=== PATIENT | female | born 1950 | race Caucasian/White ===

== ENCOUNTER → 2016-09-11 | Outpatient (CLI) | payer OTHER ==
[~2016-09-11] MED LIST: ATOR10TA88 PO; LISI-787 PO; MULTTAB58 PO; OMEGCAP2 PO
--- NOTE | 2016-09-12 07:42 | MAMMOGRAPHY REPORT ---
BILATERAL DIGITAL SCREENING MAMMOGRAM WITH CAD: 09/11/2016 CLINICAL HISTORY: Routine screening. Patient has no complaints. TECHNIQUE: Bilateral CC and MLO views were obtained. Current study was also evaluated with a Compute r Aided Detection (CAD) system. COMPARISON: Comparison is made to exams dated: 09/07/2015 mammogram, 08/25/2014 mammogram, 08/11/2013 [facility], 08/07/2011 mammogram, 08/01/2010 mammogram, and 07/28/2009 [facility]og [facility]. BREAST COMPOSITION: The tissue of both breasts is almost entirely fatty. FINDINGS: The parenchymal pattern is unchanged. No developing mass, architectural distortion or clus ter of suspicious microcalcifications is seen in either breast. IMPRESSION: ACR BI-RADS CATEGORY 2: BENIGN There is no mammographic evidence of malignancy. A 1 year screening mammogram is recommended. The pa tient will receive written notification of the results. Approximately 10% of breast cancers are not detected with mammography. A negative mammographic report should not delay biopsy if a clinically suggestive mass is present. Anjali Alvarado M.D. ay/:09/11/2016 16:15:53 Center Director Lead Teacher: Rena Huddleston RT(R)(M)(BD), [facility] letter sent: Normal 1/2 BI-RADS Code: ACR BI-RADS Category 2: Benign
== END | disposition home or self-care (01) ==
LOC: C.MAMM 10:52
PROVIDERS: ATTEND Family Medicine
DX: Z12.31 Encounter for screening mammogram for malignant neoplasm of breast (principal)

== ENCOUNTER → 2016-09-19 | Outpatient (CLI) | payer OTHER | END | disposition home or self-care (01) | LOC: C.MAMM 12:57 | PROVIDERS: ATTEND Family Medicine | DX: M81.0 Age-related osteoporosis without current pathological fracture (principal); M85.89 Other specified disorders of bone density and structure, multiple sites ==

== ENCOUNTER → 2017-09-12 | Outpatient (CLI) | payer OTHER ==
[~2017-09-12] MED LIST changes: +ATOR10TA82 PO; -ATOR10TA88 PO
--- NOTE | 2017-09-13 08:10 | MAMMOGRAPHY REPORT ---
BILATERAL DIGITAL SCREENING MAMMOGRAM TOMOSYNTHESIS WITH CAD: 09/12/2017 CLINICAL HISTORY: Routine screening. Patient has no complaints. TECHNIQUE: The study was acquired using full field digital technology and interpreted from soft copy. Tomosynthesis (3D imaging) was done in the CC and MLO projections. A C-view reconstruction was then done. Current study was also evaluated with a Computer Aided Detection (CAD) system. COMPARISON: Comparison is made to exams dated: 09/11/2016 mammogram, 09/07/2015 mammogram, 08/25/2014 m ammogram, 08/11/2013 mammogram - [facility], 08/07/2011 mammogram, and 08/01/2010 mammo gram. BREAST COMPOSITION: The tissue of both breasts is almost entirely fatty. FINDINGS: No suspicious masses, calcifications, or areas of architectural distortion are noted in either breast . There has been no significant interval change compared to prior exams. IMPRESSION: ACR BI-RADS CATEGORY 1: NEGATIVE There is no mammographic evidence of malignancy. A 1 year screening mammogram is recommended.( 019) The patient will receive written notification of the results. Approximately 10% of breast cancers are not detected with mammography. A negative mammographic report should not delay biopsy if a clinically suggestive mass is present. Sandhya Navarro M.D. ah/:09/12/2017 12:29:43 Plumbing Warehouse Helper: RT Karime(Yumiko)(M)(BD), [facility] letter sent: Normal 1/2 BI-RADS Code: ACR BI-RADS Category 1: Negative
== END | disposition home or self-care (01) ==
LOC: C.MAMM 11:04
PROVIDERS: ATTEND Family Medicine
DX: Z12.31 Encounter for screening mammogram for malignant neoplasm of breast (principal)

== ENCOUNTER 2024-03-28 08:15 | Inpatient (IN) ==
--- NOTE | 2024-03-28 08:34 | Emergency Department Note ---
Impression & Plan Closed right hip fracture, Ground-level fall ED Provider Note Name: JOCY MENDOZA Age: 74 Sex: Female Arrives Via: Ambulance Informant: Patient ED Provider: Yury Ragsdale MD Chief Complaint: Right thigh pain Impression: As per impressions above Medical Decision Makin-year-old female arrives for evaluation of right upper thigh pain following a ground-level fall. No head or neck injury no Tran did CT imaging of the head and neck at this time. Patient had a primary and secondary survey done by me as per typical trauma protocol. Beyond the right leg injury no clear other injuries found. X-ray of the right leg does reveal an intratrochanteric fracture. Laboratory workup otherwise is unremarkable. Patient stable and hospitalist and orthopedic surgeon made aware. Triage/Nursing Notes reviewed by Me Differential:Fracture, dislocation, neurovascular injury, rhabdo, nonmechanical fall because amongst many others. Vital Signs: reviewed and remarkable for hypertension on arrival Interventions: Dilaudid 0.5 mg IV x 2 Labs:ED labs Reviewed by me and remarkable for no significant abnormalities Imagin view chest x-ray as per my interpretation no infiltrate nor effusion appreciated. 1 view pelvis x-ray as per my interpretation right intertrochanteric fracture somewhat noted. X-ray of the right femur 4 view as per my interpretation there is a somewhat displaced mildly comminuted right intertrochanteric fracture. EKG:As per my interpretation. Indication preop. Sinus bradycardia 51 bpm QTc of 432. There is no ectopy nor ischemia. Compared to EKG of August 02, 2023 there is no significant change. Cardiac/Tele Monitoring: Cardiac Monitoring: An Order was placed for continuous cardiac monitoring. The monitor shows a rate of 50 with a sinus janes rhythm. Consults:Discussed with Dr. Jeffery of the [facility] Hospitalist Service. Discussed with Dr. Agee of orthopedics Plan: Disposition:Hospitalization. Condition: Good History of Present Illness: 74-year-old female arrives for evaluation of right leg pain. Patient was taking out the trash this morning slipped on the wet ground. She landed on her right hip. She has been having right hip and right upper thigh pain since then. Patient notes initially her right leg felt a bit numb after the fall but it has since returned. She laid on the ground for about 10 minutes before a passerby saw her and called 911. Patient did not strike her head. She denies any headache, neck pain. She is not having any other pain or injuries. She is not having any difficulty breathing, shortness of breath, chest pain, nausea, vomiting abdominal pain, back pain. She has no history of hip injury. She does not follow with any orthopedic surgeons. She has a history of hypertension and did have a TAVR 3 years ago. She does not take any blood thinners other than a baby aspirin Past Medical History: Dyslipidemia hypertension Home Medications:See Below Allergies:nkda Vitals:Blood Pressure: 177/84, Pulse 52, RR 14, T 36.5C, O2 97% on RA Physical Exam: GENERAL: Patient is uncomfortable appearing and in moderate distress. HEAD: AT/NC RESPIRATORY: No dyspnea. Clear to auscultation and equal bilaterally. CARDIOVASCULAR: Regular rate and rhythm.No murmur appreciated. GASTROINTESTINAL: Abdomen soft, non-tender, no peritonitis. EXTREMITIES: Shortened externally rotated right leg. She has significant tenderness palpation of the right upper medial thigh. Distal pulses sensation are intact. Good warmth bilateral lower legs. Upper extremities intact no tenderness to palpation or difficulty with range of motion. NEUROLOGIC: Alert and oriented. No focal neurologic deficits appreciated SKIN: No rash, no jaundice, no diaphoresis. PSYCH: Appropriate GCS: 15 ED Course: Times/Reassessments: Pain somewhat under control with IV Dilaudid Though did require second dosing. Yury Ragsdale MD Past Med/Surg History Problem List (Updated 03/28/24 @ 16:26 by Yury Ragsdale MD) Ground-level fall (Acute) History of CHF (congestive heart failure) S/P TAVR (transcatheter aortic valve replacement) Closed right hip fracture (Acute) Dizziness (Acute) Abnormal EKG (Acute) Hyperlipidemia (Chronic) Hypertension (Chronic) Medical History (Updated 03/28/24 @ 16:26 by Yury Ragsdale MD) Encounter for pre-operative examination History of CHF (congestive heart failure) Hyperlipidemia Hypertension Surgical History (Updated 03/28/24 @ 11:54 by Ce Wynne RN) Hx of tonsillectomy S/P TAVR (transcatheter aortic valve replacement) Social History Smoking Status: Former smoker Second Hand Exposure: No; Do You Dip or Chew Tobacco: No; Hx Alcohol Use: No Hx Substance Use: No Preferred Language: Portuguese [employer] Work[employer] D[employer] Required: No Beliefs That Will Affect Care: None Current Living Situation: Alone current occupation: Retired Feels Safe at Home: Yes Allergies Allergies Allergy/AdvReac Type Severity Reaction Status Date / Time No Known Allergies Allergy Verified 07/11/21 07:28 Home Meds Home Medications Medication Instructions Recorded Confirmed calcium 600 mg (as 1 tab PO [facility] 05/22/20 03/28/24 carbonate)-vitamin D3 5 mcg (200 unit) tablet multivitamin 1 tab PO QAM 05/22/20 03/28/24 omega-3 fatty acids 1,250 mg PO .Q OTHER DAY 05/22/20 03/28/24 amlodipine 10 mg tablet 10 mg PO [facility] 07/11/21 03/28/24 ferrous sulfate 143 mg PO .Q OTHER DAY 07/11/21 03/28/24 hydralazine 10 mg tablet 20 mg PO BID 07/11/21 03/28/24 metoprolol succinate 25 mg 25 mg PO PM 07/11/21 03/28/24 tablet,extended release 24 hr valsartan 320 mg tablet 320 mg PO [facility] 07/11/21 03/28/24 CoQ-10 1 cap PO [facility] 03/28/24 03/28/24 aspirin 81 mg tablet,delayed 81 mg PO [facility] 03/28/24 03/28/24 release furosemide 20 mg tablet 20 mg PO .3X WEEKLY 03/28/24 03/28/24 pravastatin 20 mg tablet 20 mg PO [facility] 03/28/24 03/28/24 Results & Data (ED) Vital Signs Vital Signs - 24 hr 03/28/24 08:21 03/28/24 08:22 03/28/24 08:22 Temperature 36.5 C Temperature Source Oral Pulse Rate 54 L Pulse Rate from SpO2 Sensor Respiratory Rate 14 Respiratory Effort / Characteristics Non-Labored Spontaneous Non-Labored Spontaneous Respiratory Depth Normal Normal Blood Pressure 177/84 H 177/84 H Blood Pressure Mean 136 115 Pulse Oximetry 97 Oxygen Delivery Method Room Air Sepsis Recent Fever Within 48 Hours No Sepsis New/Unexplained Change in Mental Status N/A Sepsis Action Taken by Nursing No Action Required 03/28/24 08:25 03/28/24 08:30 03/28/24 08:42 Temperature Temperature Source Pulse Rate 52 L 59 L 56 L Pulse Rate from SpO2 Sensor 60 59 L Respiratory Rate 15 Respiratory Effort / Characteristics Respiratory Depth Blood Pressure Blood Pressure Mean Pulse Oximetry 98 93 Oxygen Delivery Method Sepsis Recent Fever Within 48 Hours Sepsis New/Unexplained Change in Mental Status Sepsis Action Taken by Nursing 03/28/24 08:51 03/28/24 09:00 03/28/24 09:18 Temperature Temperature Source Pulse Rate 44 L 59 L 61 Pulse Rate from SpO2 Sensor 50 L 60 61 Respiratory Rate 14 18 12 Respiratory Effort / Characteristics Respiratory Depth Blood Pressure Blood Pressure Mean Pulse Oximetry 95 96 96 Oxygen Delivery Method Sepsis Recent Fever Within 48 Hours Sepsis New/Unexplained Change in Mental Status Sepsis Action Taken by Nursing 03/28/24 09:24 03/28/24 09:36 Temperature Temperature Source Pulse Rate 63 65 Pulse Rate from SpO2 Sensor 62 65 Respiratory Rate 19 13 Respiratory Effort / Characteristics Respiratory Depth Blood Pressure Blood Pressure Mean Pulse Oximetry 91 99 Oxygen Delivery Method Sepsis Recent Fever Within 48 Hours Sepsis New/Unexplained Change in Mental Status Sepsis Action Taken by Nursing Laboratory Data 03/28/24 08:27 03/28/24 08:27 Lab Results 03/28/24 03/28/24 Range/Units 08:27 09:05 WBC 9.60 (4.8-10.8) K/ul RBC 5.91 H (4.20-5.40) M/uL Hgb 10.9 L (12.0-16.0) g/dl Hct 34.5 L (37.0-47.0) % MCV 58.4 L (80.0-100.0) fL MCH 18.4 L (25.0-34.0) pg MCHC 31.6 L (32.0-36.0) g/dL RDW Std Deviation 31.6 L (36.4-46.3) fL RDW Coeff of Tina 16.2 H (11.5-14.5) % Plt Count 232 (130-400) K/uL Immature Gran % (Auto) 0.4 % Neut % (Auto) 67.0 % Lymph % (Auto) 19.2 % Noble % (Auto) 11.3 % Eos % (Auto) 1.9 % Baso % (Auto) 0.2 % Neut # (Auto) 6.44 (1.40-6.50) K/uL Lymph # (Auto) 1.84 (1.20-3.40) K/uL Noble # (Auto) 1.08 H (0.11-0.59) K/uL Eos # (Auto) 0.18 (0.00-0.50) K/uL Baso # (Auto) 0.02 (0.00-0.20) K/uL Immature Gran # (Auto) 0.04 (0.01-0.20) K/uL Polychromasia 1+ Poikilocytosis Present Microcytosis Present Target Cells 1+ Tear Drop Cells 1+ Ovalocytes 1+ PT 10.6 (9.0-12.0) Seconds INR 1.0 (0.9-1.1) APTT 25 (21-31) Seconds PTT Ratio 0.9 Sodium 142 (136-145) mmol/L Potassium 4.1 (3.5-5.1) mmol/L Chloride 109 H (98-107) mmol/L Carbon Dioxide 27 (21-32) mmol/L Anion Gap 6 (3-11) BUN 28 H (6-23) mg/dl Creatinine 0.61 (0.6-1.2) mg/dl Est Cr Clr Drug Dosing 74.5 ml/min eGFR 93.76 BUN/Creatinine Ratio 45.9 H (10-20) Glucose 119 H (70-99(Fasting)) mg/dl Calcium 8.9 (8.6-10.3) mg/dl Magnesium 1.9 (1.7-2.4) mg/dl Urine Color Yellow Urine Appearance Clear (Clear) Urine pH 5.5 (4.5-7.5) Ur Specific [place] 1.020 (1.000-1.030) Urine Protein Negative (Negative) Urine Glucose (UA) Negative (Negative) Urine Ketones Negative (Negative) Urine Blood Negative (Negative) Urine Nitrite Negative (Negative) Urine Bilirubin Negative (Negative) Urine Urobilinogen Negative (Negative) Ur Leukocyte Esterase Negative (Negative) Administered Medications Hydromorphone HCl (Hydromorphone Inj 2 Mg/Ml Syr/Vial) 0.5 mg IV Q5M PRN PRN Reason: PACU Use Only-Pain Stop: 03/28/24 23:11 Last Admin: 03/28/24 15:24 Dose: 0.5 mg Documented By: Admin: 03/28/24 15:19 Dose: 0.5 mg Documented By: Admin: 03/28/24 15:14 Dose: 0.5 mg Documented By: ADAM Potassium Chloride/Sodium Chloride (Normal Saline W/20 Meq Kcl) 20 meq in 1,000 mls @ 70 mls/hr IV .[id number] NETTIE Stop: 03/29/24 11:31 Last Admin: 03/28/24 16:09 Dose: 70 mls/hr Documented By: SONYA Discontinued Medications Amlodipine Besylate (Amlodipine Besylate 5 Mg Tab) 10 mg PO NOW ONE Stop: 03/28/24 09:46 Last Admin: 03/28/24 10:05 Dose: 10 mg Documented By: AMINA Bupivacaine HCl/Epinephrine Bitart (Bupivacaine/Epinephrine 0.25% 1:200,000 30 Ml Vial) Confirm Administered Dose 30 ml .ROUTE .STK-MED ONE Stop: 03/28/24 13:05 Last Admin: 03/28/24 14:01 Dose: 30 ml Documented By: [id number] Cefazolin Sodium (Cefazolin 2,000 Mg/15 Ml Iv Push) Confirm Administered Dose 2,000 mg IV .STK-MED ONE Stop: 03/28/24 12:57 Last Admin: 03/28/24 12:59 Dose: Not Given Documented By: MG Fentanyl Citrate (Fentanyl Citrate Pf 100 Mcg/2 Ml Vial) 25 mcg IV Q5M PRN PRN Reason: PACU Use Only-Pain Stop: 03/28/24 19:33 Last Admin: 03/28/24 14:44 Dose: 25 mcg Documented By: Admin: 03/28/24 14:39 Dose: 25 mcg Documented By: Admin: 03/28/24 14:30 Dose: 25 mcg Documented By: Admin: 03/28/24 14:25 Dose: 25 mcg Documented By: ADAM Hydromorphone HCl (Hydromorphone Inj 0.5 Mg/0.5 Ml Syr) 0.5 mg IV NOW STA Stop: 03/28/24 08:29 Last Admin: 03/28/24 08:35 Dose: 0.5 mg Documented By: AMINA Hydromorphone HCl (Hydromorphone Inj 0.5 Mg/0.5 Ml Syr) 0.5 mg IV NOW STA Stop: 03/28/24 08:56 Last Admin: 03/28/24 09:02 Dose: 0.5 mg Documented By: AMINA Hydromorphone HCl (Hydromorphone Inj 0.5 Mg/0.5 Ml Syr) 0.5 mg IV NOW STA Stop: 03/28/24 10:35 Last Admin: 03/28/24 10:36 Dose: 0.5 mg Documented By: AMINA Hydromorphone HCl (Hydromorphone Inj 1 Mg/Ml Syringe) 0.25 mg IV Q5M PRN PRN Reason: PACU Use Only-Pain Stop: 03/28/24 19:33 Last Admin: 03/28/24 15:04 Dose: 0.25 mg Documented By: Admin: 03/28/24 14:59 Dose: 0.25 mg Documented By: Admin: 03/28/24 14:54 Dose: 0.25 mg Documented By: Admin: 03/28/24 14:49 Dose: 0.25 mg Documented By: ADAM Sodium Chloride (Nss) 500 mls @ 999 mls/hr IV .Q31M ONE Stop: 03/28/24 09:43 Last Infusion: 03/28/24 10:32 Dose: Infused Documented By: Admin: 03/28/24 09:14 Dose: 999 mls/hr Documented By: AMINA Famotidine (Pepcid 20mg Iv Push) 20 mg in 5 mls @ 2.5 mls/min IV NOW STA Stop: 03/28/24 09:59 Last Admin: 03/28/24 10:05 Dose: 2.5 mls/min Documented By: AMINA Lactated Ringer's (Lr) 1,000 mls @ 15 mls/hr IV .Q24H NETTIE Stop: 03/29/24 11:59 Last Infusion: 03/28/24 12:58 Dose: Infused Documented By: Admin: 03/28/24 12:07 Dose: 15 mls/hr Documented By: MG Tranexamic Acid (Tranexamic Acid / 0.7% Nacl) 1,000 mg in 100 mls @ 600 mls/hr IV PREOP ONE Stop: 03/28/24 13:01 Last Admin: 03/28/24 12:58 Dose: 600 mls/hr Documented By: MG Tranexamic Acid (Tranexamic Acid / 0.7% Nacl) 1,000 mg in 100 mls @ 600 mls/hr IV ONE ONE Stop: 03/28/24 13:01 Last Admin: 03/28/24 13:53 Dose: 600 mls/hr Documented By: [id number] Cefazolin Sodium (Ancef 2000mg) 2,000 mg in 15 mls @ 3.75 mls/min IV PREOP ONE; Protocol Stop: 03/28/24 12:56 Last Admin: 03/28/24 13:00 Dose: 3.75 mls/min Documented By: [id number] Ondansetron HCl (Ondansetron Inj 2 Mg/Ml 2 Ml Vial) 4 mg IV NOW STA Stop: 03/28/24 08:29 Last Admin: 03/28/24 08:36 Dose: 4 mg Documented By: AMNIA Ondansetron HCl (Ondansetron Inj 2 Mg/Ml 2 Ml Vial) 4 mg IV ONCE PRN PRN Reason: PACU Use Only-Nausea/Vomiting Stop: 03/28/24 19:33 Last Admin: 03/28/24 15:49 Dose: 4 mg Documented By: ADAM Tranexamic Acid (Tranexamic Acid / 0.7% Nacl 1000mg/100ml Bag) Confirm Administered Dose 2,000 mg IV .STK-MED ONE Stop: 03/28/24 12:57 Last Admin: 03/28/24 13:00 Dose: Not Given Documented By: Imaging Data Radiologist's Impression: Femur X-Ray 03/28/24 08:28 XR femur RT 2V routine CLINICAL HISTORY: upper thigh pain s/p trauma COMPARISON: None FINDINGS: 2 views of the right femur demonstrate a comminuted intertrochanteric fracture of the proximal right femur and no distal femoral abnormalities. IMPRESSION: As above ACT 112: Negative or not required by law. Electronically signed by: Daksha Abernathy M.D. 03/28/2024 9:29 AM Pelvis X-Ray 03/28/24 08:28 XR pelvis 1-2V routine CLINICAL HISTORY: right hip pain fall COMPARISON: None FINDINGS: Comminuted intertrochanteric fracture of the proximal right femur with the typical deformity. No pelvic fractures identified. Left hip normally aligned. IMPRESSION: Intertrochanteric fracture proximal right femur ACT 112: Negative or not required by law. Electronically signed by: Daksha Abernathy M.D. 03/28/2024 9:28 AM Chest X-Ray 03/28/24 08:29 XR chest 1V portable CLINICAL HISTORY: fall, pre-op COMPARISON STUDY: 08/02/2023 FINDINGS: Stable cardiomegaly without pulmonary vascular congestion. No effusion or consolidation. No pneumothorax. No grossly displaced rib fracture seen. IMPRESSION: No acute findings. ACT 112: Negative or not required by law. Electronically signed by: Onofre Molina M.D. 03/28/2024 9:43 AM Discharge Plan Visit Data Chief Complaint: Fall ED Provider: Yury Ragsdale Discharge Problem: Closed right hip fracture, Ground-level fall Patient Disposition: Admitted As Inpatient Discharge Instructions Interventions: ED Discharge Assessment Last Done: 03/28/24 10:59 Discharge Problem: Closed right hip fracture Qualifiers: Encounter type: initial encounter Qualified Code(s): S72.001A - Fracture of unspecified part of neck of right femur, initial encounter for closed fracture
[2024-03-28] MEDS: HYDROmorphone INJ 0.5 MG/0.5 ML SYR IV STA ×3 (08:35→10:36)
[2024-03-28] MEDS: ONDANSETRON INJ 2 MG/ML 2 ML VIAL IV STA (08:36)
[2024-03-28 08:56] LABS: Hematocrit (blood only) 34.5 % (37.0-47.0); Hemoglobin 10.9 g/dl (12.0-16.0); Mean Corpuscular Hemoglobin 18.4 pg (25.0-34.0); Mean Corpuscular Hgb Conc 31.6 g/dL (32.0-36.0); Mean Corpuscular Volume 58.4 fL (80.0-100.0); Platelet Count 232 K/uL (130-400); RDW Coefficient of Variation 16.2 % (11.5-14.5); RDW Standard Deviation 31.6 fL (36.4-46.3); Red Blood Count 5.91 M/uL (4.20-5.40)
[2024-03-28 08:58] LABS: BUN Creatinine Ratio 45.9 (10-20); Calcium 8.9 mg/dl (8.6-10.3); Creatinine Clr Calc Pharmacy 74.5 ml/min; Magnesium 1.9 mg/dl (1.7-2.4); Potassium 4.1 mmol/L (3.5-5.1)
[2024-03-28 09:12] LABS: Partial Thromboplastin Ratio 0.9; Partial Thromboplastin Time 25 Seconds (21-31); Prothrombin Time 10.6 Seconds (9.0-12.0)
[2024-03-28] MEDS: SODIUM CHLORIDE 0.9% 500 ML IV ONE (09:14)
--- OUTSIDE RECORDS SUMMARY | 2024-03-28 09:14 | External Medical Summary | Continuity of Care Document ---
Author Name Unknown Organization [facility] [address] [facility] Address [address] [place], [place] [id number] Care Team Providers Care Outpatient Physical Therapist Name Role Phone Dary Warren Primary Care Physician [phone] Encounter [facility] [phone] Date(s): 02/22/24 - 02/22/24 [facility] [address], [address] [place] [address] [phone] Discharge Disposition: Home or Self Care Attending Physician: DO Cope Jason D Referring Physician: DO Cope Jason D Allergies, Adverse Reactions, Alerts No Known Allergies Immunizations Given and Recorded Vaccine Date Status Refusal Reason influenza virus vaccine, inactivated 01/29/24 Los rded influenza virus vaccine, inactivated 1 01/05/23 Gi ade influenza virus vaccine, inactivated 2 01/02/22 Gi ade influenza virus vaccine, inactivated 3 12/27/20 Gi ade influenza virus vaccine, inactivated 12/22/19 Give n influenza virus vaccine, inactivated 12/17/18 Give n influenza virus vaccine, inactivated 12/10/17 Give n influenza virus vaccine, inactivated 12/05/16 Give n influenza virus vaccine, inactivated 12/07/15 Give n influenza virus vaccine, inactivated 11/16/14 Give n influenza virus vaccine, inactivated 12/09/13 Give n influenza virus vaccine, inactivated 12/02/12 Give n influenza virus vaccine, inactivated 11/06/11 Give n SARS-CoV-2 (COVID-19) mRNA-vacc - [id number] 12/12/23 Recorded SARS-CoV-2 (COVID-19) mRNA-vacc - [id number] 12/11/23 Recorded RSV vaccine, preF A-preF B, recombinant 01/15/23 R ecorded SARS COVID Vaccine Unspecified 12/03/22 Recorded SARS-CoV-2 mRNA (Pfizer 12+) bivalent 5 12/02/21 R ecorded SARS-CoV-2 (COVID-19) mRNA-1273 vaccine 6 07/04/21 Recorded SARS-CoV-2 mRNA (tozinameran 5y-11y) 07/03/21 Los rded SARS-CoV-2 (COVID-19) mRNA BNT-162b2 vax 7 12/10/20 Recorded SARS-CoV-2 (COVID-19) mRNA BNT-162b2 vax 8 04/21/20 Recorded SARS-CoV-2 (COVID-19) mRNA BNT-162b2 vax 9 03/31/20 Recorded zoster vaccine, inactivated 10 04/27/19 Recorded zoster vaccine, inactivated 11 03/11/19 Recorded zoster vaccine, inactivated 12 01/06/19 Recorded zoster vaccine, inactivated 13 12/27/18 Recorded pneumococcal 23-valent vaccine 06/04/17 Given tetanus/diphtheria/pertuss, acel (Tdap) 07/18/16 G iven pneumococcal 13-valent vaccine 06/07/16 Given zoster vaccine live 12/07/11 Recorded tetanus toxoids-diphtheria, Td (Adult) 02/27/05 Re corded Not Given Vaccine Date Status Refusal Reason influenza virus vaccine, inactivated 4 01/11/23 No t Given Patient Refuses 1Result Comment: Patient declined high dose flu. 2Result Comment: Jessica Singh MA 3Result Comment: At the patients request, she received the low dose influenza shot verified by Zaid Jackson LPN 4Result Comment: 2022-01-02: Historical information-source unspecified 5Result Comment: 2022-01-02: Historical information-source unspecified 6Result Comment: 2020-12-27: Historical information-source unspecified 7Result Comment: 2020-12-27: Historical information-source unspecified 8Result Comment: 2020-12-27: Historical information-source unspecified 9Result Comment: Denzel 10Result Comment: 2020-12-27: Historical information-source unspecified 11Result Comment: 2020-12-27: Historical information-source unspecified 12Result Comment: Denzel 13Result Comment: Patient requested low dose flu vaccine due to side effects of high dose flu vaccine. Medications amoxicillin 500 mg oral capsule Start: 01/24/22 11:05:00 AM EST, 4 cap, PO, As indicated, Disp# 12 cap, Refills: 3, one hour beforedental and other procedures as directed, Pharmacy: [facility] Start Date: 01/24/22 Status: Ordered aspirin 81 mg oral tablet, chewable Start: 10/10/21 10:14:00 AM EDT, 1 tab, PO, Daily, Disp# 30 tab, Refills: 3, Pharmacy: [facility] Start Date: 10/10/21 Stop Date: 02/07/22 Status: Ordered Caltrate 600+D Soft Chews Start: 06/24/10 1:31:00 PM EDT, Daily, tab Start Date: 06/24/10 Status: Ordered Co-Q10 100 mg oral capsule Start: 02/08/24 3:50:00 PM EST, 2 cap, PO, Daily Start Date: 02/08/24 Status: Ordered Fish Oil oral capsule Start: 06/14/11 1:37:00 PM EDT, See Instructions, No Dosage Noted One Daily Start Date: 06/14/11 Status: Ordered furosemide 20 mg oral tablet Start: 10/31/23 2:26:00 PM EDT, 1 tab, PO, qMonWedFri, Disp# 30 tab, Refills: 11, 1 tab MWF, Pharmacy: [facility] Start Date: 10/31/23 Status: Ordered hydrALAZINE 10 mg oral tablet Start: 07/02/23 4:09:00 PM EDT, 2 tab, PO, bid, Disp# 360 tab, Refills: 3, [facility] Start Date: 07/02/23 Status: Ordered metoprolol succinate 25 mg oral tablet, extended release Start: 08/27/23 4:31:00 PM EDT, 1 tab, PO, qhs, Disp# 90 tab, Refills: 3, Pharmacy: [facility] Start Date: 08/27/23 Status: Ordered multivitamin Start: 12/05/16 11:11:00 AM EDT, 1 tab, PO, Daily Start Date: 12/05/16 Status: Ordered Norvasc 10 mg oral tablet Start: 08/07/23 9:10:00 AM EDT, 1 tab, PO, Daily, Disp# 90 tab, Refills: 3, [facility]: [facility] Start Date: 08/07/23 Status: Ordered pravastatin 20 mg oral tablet Start: 03/26/23 4:13:00 PM EST, 1 tab, PO, qhs, Disp# 90 tab, Refills: 3, Pharmacy: [id number] Start Date: 03/26/23 Status: Ordered Slow Fe (as elemental iron) 45 mg oral tablet, extended release Start: 12/05/16 11:12:00 AM EDT, See Instructions, 1 tab PO Daily every other day Start Date: 12/05/16 Status: Ordered valsartan 320 mg oral tablet Start: 06/14/23 8:07:00 AM EDT, 1 tab, PO, Daily, Disp# 90 tab, Refills: 3, Pharmacy: [id number] Start Date: 06/14/23 Status: Ordered Vitamin C Start: 01/03/24 11:08:00 AM EST Start Date: 01/03/24 Status: Ordered zinc (as acetate) 25 mg oral capsule Start: 01/03/24 11:08:00 AM EST Start Date: 01/03/24 Status: Ordered Problem List Condition Confirmation Course Effective Dates Status H ealth Status Informant Anemia Confirmed Active Aortic insufficiency Confirmed Active Aortic valve stenosis Confirmed Active Diastolic CHF Confirmed Active Diverticulosis Confirmed Active S/P TAVR (transcatheter aortic valve replacement) Confirmed Active Hyperlipidemia Confirmed Active HYPERTENSION Confirmed Active OSTEOPOROSIS Confirmed Active Procedures Procedure Date Related Diagnosis Body Site Status Mammogram 1 09/26/22 Completed Screening mammogram of bilat eral breasts 2 09/21/20 Completed Colonoscopy 3, 4 01/14/20 Complete d Mammogram - screening 5 09/19/19 C ompleted Bone density scan 6, 7 07/24/19 Co mpleted Plain x-ray - R foot 8 12/25/18 Co mpleted Mammogram - screening 9 09/12/17 C ompleted Mammogram - screening 10 09/11/16 Completed Mammogram - screening 11 09/07/15 Completed Ultrasound right upper extremity 12 08/17/15 Completed Wrist X-ray 13 08/17/15 Completed Mammogram 14 08/26/14 Completed Echocardiogram 08/17/14 Completed Echocardiogram 07/05/14 Completed Chest x-ray 15 07/04/[address] brain w/o contrast 16 07/04/14 Completed Mammogram 17 08/11/13 Completed Colonoscopy 18 12/2009 Completed sabaceous cyst from left side neck 1972 Completed wisdom teeth extraction 1968 C ompleted mammogram-08/08 Completed Tonsillectomy and adenoidectomy Completed 1Impression: There is no mammographic evidence of malignancy. A 1 year screening mammogram is recommended. 2Impression: ACR BI-RADS CATEGORY 1: NEGATIVE. There is no mammographic evidence of malignancy. A 1 year screening mammogram is recommended. (09/22/2021). The patient will receive written notification of the results. 3impression: -diverticulosis in the sigmoid colon -no specimens collected 4Repeat in 5 years. 5IMPRESSION: Negative for malignancy. 1 year screening is recommended 6(07/24/19) Spine Tscore -2.1 Femur mean Tscore -2.6 7AP spine t-score; -2.5 Dual femur total mean t-score: -2.1 Z score -0.9 BDM within normal linits relative to their age. 81. no fx within the right foot. 2. plantar heel spur 9IMPRESSION: No mammographic evidence of malignancy. 10There is no mammographic evidence of malignancy. A 1 year screening mammogram is recommended. 11there is no mammographic evidence of malignancy. A 1 year screening mammogram is recommended. The patient will receive written notification of the results. 12There is no sonographic evidence of deep venous thrombosis identified in the right upper extremity. 13impression there is a soft tissue swelling with no radiographic evidence of fracture in the right wrist. osteopenia and mild arthritic changes as above. there is questionable mild widening of the scapholunate articulation. this may be related to positioning. but could also be seen in the setting ofligamentous injury. clinical correlation will be required. 14Normal 15hx: dizziness Impression: negative study. 16Impression: negative study 17Normal 18Diverticulosis, hyperplastic polyp, needs repeat 2019 Social History Social History Type Response Smoking Status Never smoked cigaret kati Sex Female Sex Representation Female (finding) Patient Care team information Care Team Personnel Name: EAGLE Alva Tara Position: Nurse Pract - Family Med Member Role: Lifetime Relationship Address: [address] [place] [id number] [place] Name: MD Kelvin, Dary Cazares Position: Physician Member Role: Primary Care Provider Address: 6 [facility] [address] [place] [address] [place] Name: TEDDY Balderrama, Buffy [place] Position: Physician Asst [place] - CT Surgery Member Role: Lifetime Relationship Address: [address] [place] [id number] Care Team Related Persons Name: PAT BLANK
--- OUTSIDE RECORDS SUMMARY | 2024-03-28 09:14 | External Medical Summary | Summary of Care ---
Author Name Unknown Organization [facility] Address [address] [place] [address] Phone [phone] Care Team Providers Care Merchandise Carrier Name Role Phone Dary Warren MD Primary Care Provi jennifer Reason for Referral * Evaluate & Treat - Unlimited Visits (Within 10 days (routine)) - Authorized Specialty Diagnoses / Procedures Referred By Contmaritza gomez Referred To Contact Dietitian Diagnoses Dietary counseling and surveillance Diastolic heart failure (HCC) Dary Warren MD 6 [facility] [address] [place] [id number] Phone: tel: fax: Referral ID Status Reason Start Date Expiration Date Visits Requested Visits Authorized [id number] Authorized Specialty Services Required 03/10/[phone] Question Answer Referral Priority Within 10 days (routine) Where should this appointment be scheduled? Deborah Comments This referral/annual renewal order is for Medical Nutrition Therapy (MNT) or Diabetes Self-Management Training (DSMT). MNT is provided by a Registered Dietitian Sausage Meat Trimmer. MNT is an evidence-based medical approach to treating certain chronic conditions through the use of an individually-tailored nutrition, lifestyle changes and behavior modification plan. Diabetes Self-Management Training (DSMT) is provided by a recognized [place] [employer] (ADA) chemical educator: Nurse (RN), Registered Dietitian Sausage Meat Trimmer (RDN), and/or Diabetes Medical Nutrition Therapy (MNT) Management (dietitian only). Diabetes educators are responsible for assessing the participant's diabetes education needs, and providing diabetes self-management training in accordance with the standards set by the ADA for DSMT. Any adjustment in diabetes therapy will be made within the guidelines of standards of practice and [facility] approved policies and procedures. I understand that the chemical educator will keep me informed. Areas of Education: Pathophysiology Nutrition Physical Activity Medications Monitoring Acute Complications Chronic Complications Psychosocial Management Promote Health/Behavior Change Participant will be offered 1:1 education training if there is a lack of classes available within 2 months. Providers can also order 1:1 training if indicated for participant for the following reasons: 1:1 Training for Insulin Initiation Participant Inappropriate for Class Setting By my electronic signature, I understand that my patient will be offered the comprehensive ADA content area above unless deemed not appropriate of I specify otherwise here: Encounter Details Date Type Department Care Team (Late st Contact Info) Description 03/10/2024 Orders Only Access [place], [address] *DO NOT REMOVE THIS DEPARTMENT* [place] [phone] Request, External Referral Dietary counseling and surveillance*; Diastolic heart failure (HCC) Allergies No known active allergiesdocumented as of this encounter (statuses as of 03/10/2024) Medications hydrALAZINE HCl 10 MG Oral Tablet (Apresoline) take 2 tablets by mouth twice daily 360 Tablet 3 01/15/2024 6:43 PM EST 07/02/2023 Active amLODIPine Besylate 10 MG Oral Tablet (Norvasc) Take 1 tablet by mouth daily 90 Tablet 3 02/06/2024 2:26 PM EST 08/07/2023 Active documented as of this encounter (statuses as of 03/10/2024) Social History Tobacco Use Types Packs/Day Years Used Date Smoking Tobacco: Never Assessed Utilities Answer Date Recorded Do you have trouble paying y our heating, water, or electric bill? (Adult - for ages 18 years and over) Not on file 08/14/2023 Is your family able to pay t he heat, water, or electric bill? (Household - for ages 0-17 years) Not on file 08/14/2023 Does your family have access to good internet? (Household - for ages 0-17 years) Not on file 08/14/2023 Social Connections Answer Date Recorded How often do you feel lonely or isolated from those around you? (Adult - for ages 18 years and over) Not on file 08/14/2023 Comments Unknown Sex and Gender Information Value Date Recorded Sex Assigned at Not on file Legal Sex Female 4:16 PM EST Gender Identity Not on file Sexual Orientation Not on file documented as of this encounter Plan of Treatment Upcoming Encounters Date Type Department Care Team (Late st Contact Info) Description 09/10/2024 10:30 AM EDT Nutrition Services [facility] [address] [place] [id number] Ester Kaur RDN [address] [place] [phone] Scheduled Referrals Name Type Priority Associated Diagnoses Orde r Schedule CLINICAL NUTRITION AND DIABETES EDUCATION ANNUAL RENEWAL Referral Within 10 days (routine) Dietary counseling and surveillance Diastolic heart failure (HCC) Ordered: 03/10/2024 Health Maintenance Due Date Last Done Comments Lipid Panel 1950 Depression Screening 1962 Hepatitis C Screening 1968 Cologuard 1995 Colonoscopy 1995 Colorectal Cancer Screening 1995 Fecal Occult Blood Test 1995 Sigmoidoscopy 1995 Mammogram 10/02/2024 10/03/2023, 08/02/2022, 09/23/2021 DTap/Tdap Vaccines (2 - Td or Tdap) 07/18/2026 07/18/2016 DXA Scan 03/29/2029 03/29/2022 Pneumococcal Vaccine: 50+ Years Completed 06/04/2017, 06/07/2016 Zoster Vaccines Completed 03/11/2019, 12/27, 12/07/2011 COVID-19 Vaccine Completed 12/12/2023, , 12/03/2022, Additional history exists Influenza Vaccine (FLU shot) Completed 04/2023, 01/05/2023, 01/02/2022, Additional history exists HPV (Gardasil) Vaccine Aged Out No lo nger eligible based on patient's age to complete this topic Hepatitis B Vaccine Aged Out No longe r eligible based on patient's age to complete this topic MENINGOCOCCAL (MENACTRA/MENVEO) Aged Out No longer eligible based on patient's age to complete this topic documented as of this encounter Medical Devices Not on filedocumented as of this encounter Visit Diagnoses Diagnosis Dietary counseling and surveillance- Primary Dietary surveillance and counseling Diastolic heart failure (HCC) Unspecified diastolic heart failure documented in this encounter Care Teams Merchandise Carrier Relationship Specialty Start Date End Date Dary Warren MD 6 [facility] [address], [place] [address] PCP - General Family Medicine 05/10/22 documented as of this encounter
--- OUTSIDE RECORDS SUMMARY | 2024-03-28 09:14 | External Medical Summary | Summary of Care ---
Author Name Unknown Organization [facility] Address [address] [facility] [address] Phone [phone] Care Team Providers Care Painter Helper Spray Name Role Phone Dary Warren MD Primary Care Provi jennifer Encounter Details Date Type Department Care Team (Late st Contact Info) Description 03/11/2024 Orders Only Nutrition, [facility] [address] [place] [phone] Ester Kaur, RDVictor M [address] [place] [phone] Allergies No known active allergiesdocumented as of this encounter (statuses as of 03/11/2024) Medications hydrALAZINE HCl 10 MG Oral Tablet (Apresoline) take 2 tablets by mouth twice daily 360 Tablet 3 01/15/2024 6:43 PM EST 07/02/2023 Active amLODIPine Besylate 10 MG Oral Tablet (Norvasc) Take 1 tablet by mouth daily 90 Tablet 3 02/06/2024 2:26 PM EST 08/07/2023 Active documented as of this encounter (statuses as of 03/11/2024) Social History Tobacco Use Types Packs/Day Years [...] Description 09/10/2024 10:30 AM EDT Nutrition Services Nutrition, [facility] [address] [place] [phone] Ester Kaur RDN [address] [place] [phone] Health Maintenance Due Date Last Done Comments Lipid Panel 1950 02/12/2024 Depression Screening 1962 Hepatitis C Screening 1968 Cologuard 1995 Colonoscopy 1995 Colorectal Cancer Screening 1995 Fecal Occult Blood Test 1995 Sigmoidoscopy 1995 Mammogram 10/02/2024 10/03/2023, 0802/2022, 09/23/2021 DTap/Tdap Vaccines (2 - Td or [...] Not on filedocumented as of this encounter Procedures Procedure Name Priority Date/Time Associated Diagnosis Comments CHEMISTRY-OUTSIDE Routine 02/12/2024 documented in this encounter Results * (ABNORMAL) CHEMISTRY-OUTSIDE (02/12/2024) Not all results display below - see scan for full detail OUTSIDE LAB (SEE SCANNED REPORT) Comment:SEE SCAN - CMP, LIPI D CREATININE 0.64 0.60 - 1.00 MG/DL OUTSIDE LAB (SEE SCANNED REPORT) EGFR >90 ML/MIN OUTSIDE LA B (SEE SCANNED REPORT) POTASSIUM 3.8 3.5 - 5.1 MMOL/L OUTSIDE LAB (SEE SCANNED REPORT) GLUCOSE 108(A) 74 - 106 MG/DL OUTSIDE LAB (SEE SCANNED REPORT) HOURS FASTING OUTSID E LAB (SEE SCANNED REPORT) TRIGLYCERIDES-OUT SIDE LAB 126 <200 MG/DL OUTSIDE LAB (SEE SCANNED REPORT) CHOLESTEROL-OUTSI DE LAB 159 125 - 200 MG/DL OUTSIDE LAB (SEE SCANNED REPORT) HDL-OUTSIDE LAB 46 >35 MG/DL OUTS SONI LAB (SEE SCANNED REPORT) CHOL/HDL RATIO-OUTSIDE LAB OUTSIDE LA B (SEE SCANNED REPORT) LDL (CALCULATED)-OUTS SONI LAB 88 50 - 130 MG/DL OUTSIDE LAB (SEE SCANNED REPORT) LDL (DIRECT MEASURE)-OUTSIDE LAB OUTSIDE LAB (SEE SCANNED REPORT) HEMOGLOBIN, D8V-ODKPLOY LAB OUTSIDE LAB (SEE SCANNED REPORT) PHOSPHORUS-OUTSID E LAB OUTSIDE LAB (SEE SCANNED REPORT) PTH-OUTSIDE LAB OUTS SONI LAB (SEE SCANNED REPORT) MICROALBUMIN RATIO-OUTSIDE LAB OUTSIDE LA B (SEE SCANNED REPORT) PROTEIN, UA-OUTSIDE LAB OUTSIDE LAB (SEE SCANNED REPORT) HGB OUTSIDE LA B (SEE SCANNED REPORT) 02/12/2024 us History Per Patient LABORATORY Final Result OUTSIDE LAB (SEE SCANNED REPORT) documented in this encounter Care Teams Painter Helper Spray Relationship Specialty Start Date End Date Dary Warren MD 6 [facility] [address] [place] [address] [place] [address], [place] [address] PCP - General Family Medicine 05/10/22 documented as of this encounter
--- OUTSIDE RECORDS SUMMARY | 2024-03-28 09:14 | External Medical Summary | Summary of Care ---
Author Name Unknown Organization [facility] Address [address] [facility] [place] [place] [address] Phone [phone] Care Team Providers Care Atmospheric Scientist Name Role Phone Dary Warren MD Primary Care Provi jennifer Reason for Visit * Reason Comments Medical Nutrition Therapy Follow Up * Evaluate & Treat - Unlimited Visits (Within 10 days (routine)) - Authorized Specialty Diagnoses / Procedures Referred By See gomez Referred To Contact Dietitian / Nutrition Services Diagnoses Unspecified diastolic (congestive) heart failure (HCC) Nausea Anemia Jordyn Fletcher DO [address] [place] [address] Phone: tel: fax: Referral ID Status Reason Start Date Expiration Date Visits Requested Visits Authorized [id number] Authorized Specialty Services Required 08/22/[phone] Encounter Details Date Type Department Care Team (Latest Contact Info) Description 03/07/2024 2:30 PM EST [facility] [place] [address] [address] [facility] [id number] Overweight (BMI 25.0-29.9)*; Dietary counseling and surveillance; Diastolic congestive heart failure, unspecified HF chronicity (HCC) [I50.30] Allergies No known active allergiesdocumented as of this encounter (statuses as of 03/07/2024) Medications hydrALAZINE HCl 10 MG Oral Tablet (Apresoline) take 2 tablets by mouth twice daily 360 Tablet 3 01/15/2024 6:43 PM EST 07/02/2023 Active amLODIPine Besylate 10 MG Oral Tablet (Norvasc) Take 1 tablet by mouth daily 90 Tablet 3 02/06/2024 2:26 PM EST 08/07/2023 Active documented as of this encounter (statuses as of 03/07/2024) Social History Tobacco Use Types Packs/Day Years [...] on file documented as of this encounter Last Filed Vital Signs Vital Sign Reading Time Taken Comments Blood Pressure - - Pulse - - Temperature - - Respiratory Rate - - Oxygen Saturation - - Inhaled Oxygen Concentration - - Weight 66.5 kg (146 lb 11.2 oz) 03/07/2024 2:34 PM EST Height 154.9 cm (5' 1") 03/07/2024 2:34 PM EST Body Mass Index 27.72 03/07/2024 2:34 PM EST documented in this encounter Patient Instructions * Patient Instructions* Ester Kaur RDN - 03/07/2024 2:59 PM EST Patient will use diabetes plate model for eating at least 1 meal daily. Patient will increase fluid intake to at least 32 ounces daily most days of the week. Patient will continue with present level of activity. Try to increase level when weather becomes warmer. documented in this encounter Progress Notes * Ester Kaur, RDN - 03/07/2024 2:34 PM EST NUTRITION FOLLOW-UP NOTE - OUTPATIENT [facility] Name: Chelle Bowles Location: [facility] Date: 03/07/2024 Time: 2:34 PM Patient was identified by name and date. Patient was seen [id number] in the clinic. Reason for Nutrition Follow-up: Heart Failure, nausea, anemia NUTRITION ASSESSMENT: Client History Patient is a 73 year old female being seen for above issues. 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 Food/Nutrition-Related History Describes typical diet history/24 hr recall Breakfast: Chobani yogurt-low sugar, coffee with sweetened creamer Snacks: none Lunch: tuna packed in water on whole-grain bread, beets, water with squirt quileute Snacks: Sargentos cheese and crackers, dried fruit, and nuts Dinner: tuna on spinach, chunks of cheese, mushrooms and carrots, sometimes also has PB crackers orchili with ground beef-90/10 with low sodium beans or beef stew with potatoes, carrots, onions, mushrooms with mushroom soup and milk, water or low-sugar cranberry juice or iced tea Snacks: sometimes popcorn or 2 squares peppermint bark or orange or blueberries Drinks: 32 ounces daily Restaurant meals: at least once a month Alcohol: None Tobacco Use: No Drug Use: No Diet Recall/Food Logs Indicate: AREAS FOR IMPROVEMENT: Inadequate fruit and vegetable intake Inadequate fluid intake POSITIVE: Portion control Uses calorie free beverages Food and Nutrient Intake and other pertinent information: Patient reports eats some sweets over theholidays. She notes reviewing nutrition labels and monitor portion sizes of foods she is eating. Medications Changes/Updates: None reported Nutrition-Focused Physical Findings Overall appearance: overweight/obese Anthropometric Measurements Current Weight: Wt Readings from Last 1 Encounters: 03/07/24 66.5 kg (146 lb 11.2 oz) Wt Readings from Last 4 Encounters: 03/07/24 66.5 kg (146 lb 11.2 oz) 11/19/23 66 kg (145 lb 8 oz) Weight Change: stable BMI Readings from Last 1 Encounters: 03/07/24 27.72 kg/m Biochemical Data, Medical Tests, and Procedures Fasting glucose level on February 11. See scanned document Previous Nutrition Diagnosis: Overweight/obesity related to Poor meal distribution, Inadequate fruit and vegetable intake, Inadequate fluid intake, excessive energy intake compared to estimated needs as evidenced by Reported dietrecall, Body mass index is 27.49 kg/m. Progress towards goals: Patient will use diabetes plate model for eating at least 1 meal daily. MET Patient will increase fluid intake to at least 32 ounces daily most days of the week. MET Patient will continue to review nutrition labels for sodium content. Aim for 7% of daily value or lower for most food choices. MET Patient will continue with present level of activity. When weather is inclement, increase other activity that can be done inside. CURRENT NUTRITION DIAGNOSIS Overweight/obesity related to Inadequate fruit and vegetable intake, Inadequate fluid intake and presumed excessive energy intake compared to estimated needs as evidenced by Reported diet recall, Body mass index is 27.72 kg/m. NUTRITION INTERVENTION: NUTRITION EDUCATION Initial/brief nutrition education NUTRITION COUNSELING Strategies Nutrition Prescription: Diet: Weight Management Daily Calorie Needs: 1500 Kcals Daily Protein Needs: 60 Grams protein Current Goals: Patient will use diabetes plate model for eating at least 1 meal daily. Patient will increase fluid intake to at least 32 ounces daily most days of the week. Patient will continue with present level of activity. Try to increase level when weather becomes warmer. Dietitian Action: Encouraged patient to continue to include low-carb vegetables frequently in her meal regimen. Encouraged her to remain active during the winter. Encouraged her to drink at least 32 ounces of fluid daily. Patient asking how many carb's she should be having daily. Recommended consuming 30-45 grams per meal. Recommendations to Ordering Provider: Continue current plan of nutrition care. NUTRITION MONITORING AND EVALUATION: The following will be monitored and evaluated at the next visit: Monitor weight. Monitor goals and progress. Monitor activity regimen. Plan: Patient scheduled to return in 6 months; dietitian phone # given for future reference. 30 minutes Medical Nutrition Therapy Time In: 1434 (03/07/24 1434) Time Out: 1503 (03/07/24 1503) 15 min (8-22 min) 30 min (23-37 min) 45 min (38-52 min) 60 min (53-67 min) 75 min (68-82 min) 90 min (83-97 min) 105 min (98-113 min) ARIADNA Freedman [employer] documented in this encounter Plan of Treatment Upcoming Encounters Date Type Department Care Team (Late st Contact Info) Description 09/10/2024 10:30 AM EDT Nutrition Services [facility] [address] [place] [id number] Ester Kaur RDN [address] [place] [id number] Health Maintenance Due Date Last Done Comments Lipid Panel 1950 Depression Screening 1962 Hepatitis C Screening 1968 Cologuard 1995 Colonoscopy 1995 Colorectal Cancer Screening 1995 Fecal Occult Blood Test 1995 Sigmoidoscopy 1995 Mammogram 10/02/2024 10/03/2023, 08/0 02/2022, 09/23/2021 DTap/Tdap Vaccines (2 - Td or [...] as of this encounter Visit Diagnoses Diagnosis Overweight (BMI 25.0-29.9)- Primary Overweight Dietary counseling and surveillance Dietary surveillance and counseling Diastolic congestive heart failure, unspecified HF chronicity (HCC) [I50.30] documented in this encounter Care Teams Atmospheric Scientist Relationship Specialty Start Date End Date Dary Warren MD 6 [facility] [address] [place] [address] PCP - General Family Medicine 05/10/22 documented as of this encounter
--- OUTSIDE RECORDS SUMMARY | 2024-03-28 09:14 | External Medical Summary | Summary of Care ---
Author Name Unknown Organization [facility] Address [address] [facility] [place] [address] Phone [phone] Care Team Providers Care Non Destructive Testing Technician Name Role Phone Dary Warren MD Primary Care Provi jennifer Encounter Details Date Type Department Care Team (Late st Contact Info) Description 03/19/2024 Population Health External Data Unspecified Department Allergies No known active allergiesdocumented as of this encounter (statuses as of 03/19/2024) Medications hydrALAZINE HCl 10 MG Oral Tablet (Apresoline) take 2 tablets by mouth twice daily 360 Tablet 3 01/15/2024 6:43 PM EST 07/02/2023 Active amLODIPine Besylate 10 MG Oral Tablet (Norvasc) Take 1 tablet by mouth daily 90 Tablet 3 02/06/2024 2:26 PM EST 08/07/2023 Active documented as of this encounter (statuses as of 03/19/2024) Social History Tobacco Use Types Packs/Day Years [...] 09/10/2024 10:30 AM EDT Nutrition Services Nutrition, Sol [facility] [address] [place] [address] Ester Kaur, RDN [address] [place] [address] Health Maintenance Due Date Last Done Comments Depression Screening 1962 Hepatitis C Screening 1968 Cologuard 1995 Colonoscopy 1995 Colorectal Cancer Screening 1995 Fecal Occult Blood Test 1995 Sigmoidoscopy 1995 Mammogram 10/02/2024 10/03/2023, 08/0 02/2022, 09/23/2021 DTap/Tdap Vaccines (2 - Td or Tdap) 07/18/2026 07/18/2016 Lipid Panel 02/11/2029 02/12/2024 DXA Scan 03/29/2029 03/29/2022 Pneumococcal Vaccine: 50+ [...] Not on filedocumented as of this encounter Care Teams Non Destructive Testing Technician Relationship Specialty Start Date End Date Dary Warren MD 6 [facility] [address] [place] [address] PCP - General Family Medicine 05/10/22 documented as of this encounter
[2024-03-28 09:15] LABS: Basophils # (auto) 0.02 K/uL (0.00-0.20); Basophils % (auto) 0.2 %; Eosinophils # (auto) 0.18 K/uL (0.00-0.50); Eosinophils % (auto) 1.9 %; Immature Granulocytes # (auto) 0.04 K/uL (0.01-0.20); Immature Granulocytes % (auto) 0.4 %; Lymphocytes # (auto) 1.84 K/uL (1.20-3.40); Lymphocytes % (auto) 19.2 %; Microcytosis Present; Monocytes # (auto) 1.08 K/uL (0.11-0.59); Monocytes % (auto) 11.3 %; Neutrophils # (auto) 6.44 K/uL (1.40-6.50); Ovalocytes 1+; Poikilocytosis Present; Polychromasia 1+; Target Cells 1+; Tear Drop Cells 1+
--- OUTSIDE RECORDS SUMMARY | 2024-03-28 09:15 | External Medical Summary | Continuity of Care Document ---
Author Name Unknown Organization [facility] [address] Address [address] [facility], [place] [id number] Care Team Providers Care Corporate Director Of Human Resources Name Role Phone Dary Warren Primary Care Physician [phone] [id number] Date[facility]s): 02/12/24 - 02/12/24 [facility] [address] [facility] [address], [facility] [address] [place], [place] [phone] Encounter Diagnosis Unspecified diastolic (congestive) heart failure(Final) - Nausea(Final) - Anemia, unspecified(Final) - Encounter for screening for other viral diseases(Final) - Essential (primary) hypertension(Final) - Hyperlipidemia, unspecified(Final) - Discharge Disposition: Home or Self Care Attending Physician: MD Warren Ravishankar E Referring Physician: MD Warren Ravishankar E Allergies, Adverse Reactions, Alerts No Known Allergies [...] 11/06/11 Give n SARS-CoV-2 (COVID-19) mRNA-vacc - [id number] 12/12/23 Recorded SARS-CoV-2 (COVID-19) mRNA-vacc - [id number] 12/11/23 Recorded RSV vaccine, preF A-preF B, [...] beforedental and other procedures as directed, Pharmacy: [facility] Start Date: 01/24/22 Status: Ordered aspirin 81 mg oral tablet, chewable Start: 10/10/21 10:14:00 AM EDT, 1 tab, PO, Daily, Disp# 30 tab, Refills: 3, Pharmacy: [facility] Start Date: 10/10/21 Stop Date: 02/07/22 Status: [...] tab, Refills: 11, 1 tab MWF, Pharmacy: [facility] Start Date: 10/31/23 Status: Ordered hydrALAZINE 10 mg oral tablet Start: 07/02/23 4:09:00 PM EDT, 2 tab, PO, bid, Disp# 360 tab, Refills: 3, [facility]: [facility] Start Date: 07/02/23 Status: Ordered metoprolol succinate 25 mg oral tablet, extended release Start: 08/27/23 4:31:00 PM EDT, 1 tab, PO, qhs, Disp# 90 tab, Refills: 3, Pharmacy: [facility] Start Date: 08/27/23 Status: Ordered multivitamin Start: 12/05/16 11:11:00 AM EDT, 1 tab, PO, Daily Start Date: 12/05/16 Status: Ordered Norvasc 10 mg oral tablet Start: 08/07/23 9:10:00 AM EDT, 1 tab, PO, Daily, Disp# 90 tab, Refills: 3, Pharmacy: [facility] Start Date: 08/07/23 Status: Ordered pravastatin 20 mg oral tablet Start: 03/26/23 4:13:00 PM EST, 1 tab, PO, qhs, Disp# 90 tab, Refills: 3, Pharmacy: [facility] Start Date: 03/26/23 Status: Ordered Slow Fe (as elemental iron) 45 mg oral tablet, extended release Start: 12/05/16 11:12:00 AM EDT, See Instructions, 1 tab PO Daily every other day Start Date: 12/05/16 Status: Ordered valsartan 320 mg oral tablet Start: 06/14/23 8:07:00 AM EDT, 1 tab, PO, Daily, Disp# 90 tab, Refills: 3, Pharmacy: [email or web address] Start Date: 06/14/23 Status: Ordered Vitamin C [...] 17Normal 18Diverticulosis, hyperplastic polyp, needs repeat 2019 Results Laboratory List Name Date Basic Metabolic Panel (BASIC METAB PANEL ) 02/12/24 Ferritin (FERRITIN) 02/12/24 Hepatitis C Antibody (HEP C AB) 02/12/24 Iron Profile (IRON PROFILE) 02/12/24 Lipid Profile (LIPOPROTEINS) 02/12/24 Most recent to oldest [Reference Range]: 1 eGFR CKD-EPI [>60 mL/min/1.73 m2] >90 mL /min/1.73 m2 1 (02/12/24 8:54 AM) Non-HDL 113 mg/dL 2 (02/12/24 8:54 AM) Estimated CrCl 66.05 mL/min (02/12/24 9:58 AM) Anion Gap [5-14 mmol/L] 7 mmol/L (02/12/24 8:54 AM) BUN [7-20 mg/dL] 19 mg/dL (02/12/24 8:54 AM) Ca [8.4-10.2 mg/dL] 9.3 mg/dL (02/12/24 8:54 AM) Chol/HDL 3 (02/12/24 8:54 AM) Chol [125-200 mg/dL] 159 mg/dL (02/12/24 8:54 AM) Cl- [96-107 mmol/L] 107 mmol/L (02/12/24 8:54 AM) HCO3 [22-30 mmol/L] 28 mmol/L (02/12/24 8:54 AM) Cret [0.60-1.00 mg/dL] 0.64 mg/dL (02/12/24 8:54 AM) Iron [37-145 ug/dL] 129 ug/dL (02/12/24 8:54 AM) Ferritin [11.1-264.0 ng/mL] 325.7 ng/mL 3 *HI* (02/12/24 8:54 AM) Glu [74-106 mg/dL] 108 mg/dL *HI* (02/12/24 8:54 AM) HCV Ab [NR] NONREACTIVE *Unknown* (02/12/24 8:54 AM) HDL [>35 mg/dL] 46 mg/dL (02/12/24 8:54 AM) K [3.5-5.1 mmol/L] 3.8 mmol/L (02/12/24 8:54 AM) LDL Chol, Calculated [50-130 mg/dL] 88 m g/dL (02/12/24 8:54 AM) Na [137-145 mmol/L] 142 mmol/L (02/12/24 8:54 AM) Fe Sat [14-50 %] 56 % *HI* (02/12/24 8:54 AM) Total IBC [250-400 ug/dL] 231 ug/dL *LOW* (02/12/24 8:54 AM) Transferrin [200-360 mg/dL] 196 mg/dL *LOW* (02/12/24 8:54 AM) TG [<200 mg/dL] 126 mg/dL (02/12/24 8:54 AM) 1Result Comment: Testing Performed By: Dept of Pathology [facility], [address] [place] [id number] 2Result Comment: Testing Performed By: Dept of Pathology [facility], [address] [place] [id number] 3Result Comment: Testing Performed By: Dept of Pathology [facility], [address] [place] [phone] Social History Social History Type Response Smoking Status Never smoked cigaret kati Sex Female Sex Representation Female (finding) Patient Care team information Care Team Personnel Name: EAGLE Alva Tara Position: Nurse Pract - Family Med Member Role: Lifetime Relationship Address: [address] [place] [id number] Name: MD Kelvin, Dary Cazares Position: Physician Member Role: Primary Care Provider Address: [address] [place] [id number] [place] Name: TEDDY Balderrama, Buffy [place] Position: Physician Asst Exmpt - CT Surgery Member Role: Lifetime Relationship Address: [address] [place] [phone] Care Team Related Persons Name: PAT BLANK
--- OUTSIDE RECORDS SUMMARY | 2024-03-28 09:15 | External Medical Summary | Continuity of Care Document ---
Author Name Unknown Organization [facility] [address] [place] [address] [address] [place] [id number] Care Team Providers Care Crown Buffer Name Role Phone Dary Warren Primary Care Physician [phone] Encounter [facility] [id number] Date(s): 02/08/24 - 02/08/[address] [facility] [address], [address] [place] [address] [phone] Encounter Diagnosis HYPERTENSION(Discharge Diagnosis) - 02/08/24 Diastolic CHF(Discharge Diagnosis) - 02/08/24 Hyperlipidemia(Discharge Diagnosis) - 02/08/24 Need for hepatitis C screening test(Discharge Diagnosis) - 02/08/24 Body mass index [BMI] 28.0-28.9, adult(Discharge Diagnosis) - 02/08/24 Screen for colon cancer(Discharge Diagnosis) - 02/08/24 Discharge Disposition: Home or Self Care Attending Physician: MD Warren Ravishankar E Referring Physician: MD Warren Ravishankar E Allergies, Adverse Reactions, Alerts No Known Allergies Assessment and Plan Extracted from: Title:Office Visit Note Author:MD Warren Ravishan kar E Date:02/08/24 1.HYPERTENSION - Well controlled on current regimen - BMP to surveil 2.Hyperlipidemia - Well controlled on current regimen - FLP to surveil 3.Diastolic CHF - Stable clinically - Management per cardiology 4.Need for hepatitis C screening test - Hep C one time screen 5.Screen for colon cancer - [place] request, due 01/2025 f/u PRN or annually. Time: 40mins 5 - pre-visit chart review 30 - visit, inclusive of history, exam, and discussion of assessment/plan 5 - post-visit documentation/orders/coordination of care Immunizations Given and Recorded Vaccine Date Status [...] 11/06/11 Give n SARS-CoV-2 (COVID-19) mRNA-vacc - [id number] 12/12/23 Recorded SARS-CoV-2 (COVID-19) mRNA-vacc - [id number] 12/11/23 Recorded RSV vaccine, preF A-preF B, [...] beforedental and other procedures as directed, Pharmacy: [facility] [id number] Start Date: 01/24/22 Status: Ordered aspirin 81 mg oral tablet, chewable Start: 10/10/21 10:14:00 AM EDT, 1 tab, PO, Daily, Disp# 30 tab, Refills: 3, Pharmacy: [facility] [place] Start Date: 10/10/21 Stop Date: 02/07/22 Status: [...] tab, Refills: 11, 1 tab MWF, Pharmacy: [facility] [place] [id number] Start Date: 10/31/23 Status: Ordered hydrALAZINE 10 mg oral tablet Start: 07/02/23 4:09:00 PM EDT, 2 tab, PO, bid, Disp# 360 tab, Refills: 3, Pharmacy: [id number] Start Date: 07/02/23 Status: Ordered metoprolol succinate 25 mg oral tablet, extended release Start: 08/27/23 4:31:00 PM EDT, 1 tab, PO, qhs, Disp# 90 tab, Refills: 3, Pharmacy: [facility] [place] [id number] Start Date: 08/27/23 Status: Ordered multivitamin Start: 12/05/16 11:11:00 AM EDT, 1 tab, PO, Daily Start Date: 12/05/16 Status: Ordered Norvasc 10 mg oral tablet Start: 08/07/23 9:10:00 AM EDT, 1 tab, PO, Daily, Disp# 90 tab, Refills: 3, Pharmacy: [facility] Start Date: 08/07/23 Status: Ordered pravastatin 20 mg oral tablet Start: 03/26/23 4:13:00 PM EST, 1 tab, PO, qhs, Disp# 90 tab, Refills: 3, Pharmacy: [facility] [place] [id number] Start Date: 03/26/23 Status: Ordered Slow Fe (as elemental iron) 45 mg oral tablet, extended release Start: 12/05/16 11:12:00 AM EDT, See Instructions, 1 tab PO Daily every other day Start Date: 12/05/16 Status: Ordered valsartan 320 mg oral tablet Start: 06/14/23 8:07:00 AM EDT, 1 tab, PO, Daily, Disp# 90 tab, Refills: 3, Pharmacy: [facility] [place] [id number] Start Date: 06/14/23 Status: Ordered Vitamin C Start: 01/03/24 11:08:00 AM EST Start Date: 01/03/24 Status: Ordered zinc (as acetate) 25 mg oral capsule Start: 01/03/24 11:08:00 AM EST Start Date: 01/03/24 Status: Ordered Mental Status 02/08/24 Barriers to Learning one year None evide nt Mandatory Health Literacy Documentation Yes Health Literacy Communication Barriers N ever Primary Language Ivorian Problem List Condition Confirmation Course Effective Dates Status H ealth Status Informant Anemia Confirmed Active Aortic insufficiency Confirmed Active Aortic valve stenosis Confirmed Active Diastolic CHF Confirmed Active Diverticulosis Confirmed Active S/P TAVR (transcatheter aortic valve replacement) Confirmed Active Hyperlipidemia Confirmed Active HYPERTENSION Confirmed Active OSTEOPOROSIS Confirmed Active Diagnosis Diagnosis Type Effective Dates Health Status Clinical Service Informant HYPERTENSION Discharge Diagnosis 02/08/24 Non-Specified Screen for colon cancer Discharge Diagnosis 02/08/24 Need for hepatitis C screening test Discharge Diagnosis 02/08/24 Non-Specified Body mass index [BMI] 28.0-28.9, adult Discharge Diagnosis 02/08/24 Non-Specified Diastolic CHF Discharge Diagnosis 02/08/24 Non-Specified Hyperlipidemia Discharge Diagnosis 02/08/24 Non-Specified Procedures Procedure Date Related Diagnosis Body Site [...] 07/04/14 Completed Mammogram 17 08/11/13 Completed Colonoscopy 12/2009 Completed sabaceous cyst from left side [...] 17Normal 18Diverticulosis, hyperplastic polyp, needs repeat 2019 Vital Signs Most recent to oldest [Reference Range]: 1 Height 152 cm (02/08/24 3:37 PM) Patient Weight 65.9 kg (02/08/24 3:37 PM) Body Mass Index 28.52 kg/m2 (02/08/24 3:37 PM) Temperature [36.5-37.9 DegC] 36.2 DegC *LOW* (02/08/24 3:37 PM) Heart Rate 68 bpm (02/08/24 3:37 PM) Blood Pressure 124/62mmHg (02/08/24 3:37 PM) Cuff Pulse Pressure 62 mmHg (02/08/24 3:37 PM) Social History Social History Type Response Smoking Status Never smoked cigaret kati Sex Female Sex Representation Female (finding) FCM Outpt Note * MD Kelvin, Dary Cazares: PERFORM Event Display: FCM Outpt Note Authored Date: [id number] Chief Complaint CPE History of Present Illness Chelle is a 73yoM here today for annual f/u of chronic conditions as insurance will not cover annual CPE. She gets annual eye exams via Optometry and is UTD. She otherwise prevents to review preventative health concerns. She is due for updated labs to surveil hypertension and hyperlipidemia; both historically well controlled. She follows concurrently with cardiologyand saw them 12/2023 to f/u 1yr from TAVR procedure. Valve is functioning normally and EKG largely unchanged. She was to be set up for an event monitor [id number] f/u in cardiology to r/o AV block as cause of her dizziness. Had flu and covid vaccinations already this year. Otherwise UTD. Review of Systems 12/09pt ROS reviewed/negative except as noted in HPI. Physical Exam Vitals & Measurements T:36.2C HR:68(Monitored) BP:124/62 SpO2:98% HT:152cm WT:65.900kg(Dosing) WT:65.9kg BMI:28.52 PHQ2 Data(Data Documented on:02/08/2024 15:37) Emotional health assessment NEGATIVE GENERAL APPEARANCE: The patient is alert, oriented and in no acute distress. VITALS: As above. HEENT: Head is normocephalic/atraumatic. PERRL, EOM-I. Oropharynx clear without lesions. NECK: Supple without lymphadenopathy. Thyroid wnl. CARDIOVASCULAR: Regular rate and rhythm, no m/r/g. +2 radial pulses. LUNGS: Clear to auscultation bilaterally. No wheezes/rhales/rhonchi. ABDOMEN: Soft, nontender, nondistended with normal bowel sounds. No rebound/guarding. EXTREMITIES: No cyanosis, clubbing or edema. NEUROLOGICAL: Grossly non-focal exam. SKIN: Warm and dry without any rash. Assessment/Plan 1.HYPERTENSION - Well controlled on current regimen - BMP to surveil 2.Hyperlipidemia - Well controlled on current regimen - FLP to surveil 3.Diastolic CHF - Stable clinically - Management per cardiology 4.Need for hepatitis C screening test - Hep C one time screen 5.Screen for colon cancer - [place] request, due 01/2025 f/u PRN or annually. Time: 40mins 5 - pre-visit chart review 30 - visit, inclusive of history, exam, and discussion of assessment/plan 5 - post-visit documentation/orders/coordination of care Problem List/Past Medical History Ongoing Anemia Aortic insufficiency Aortic valve stenosis Diastolic CHF Diverticulosis Hyperlipidemia HYPERTENSION OSTEOPOROSIS S/P TAVR (transcatheter aortic valve replacement) Resolved Left ventricular hypertrophy Tobacco abuse Procedure/Surgical History Mammogram| Service Date: 09/26/2022Screening mammogram of bilateral breasts| Service Date: 1Colonoscopy| Service Date: 01/14/2020Mammogram - screening| Service Date: 09/19/2019Bone density scan| Service Date: 07/24/2019Plain x-ray - R foot| Service Date: 12/25/2018Mammogram - screening| Service Date: 09/12/2017Mammogram - screening| Service Date: 09/11/2016Mammogram - screening| Service Date: 09/07/2015Wrist X-ray| Service Date: 08/17/2015Ultrasound right upper extremity| Service Date: 08/17/2015Mammogram| Service Date: 08/26/2014Echocardiogram|Service Date: 08/17/2014Echocardiogram| Service Date: 07/05/2014Chest x-ray| Service Date: 07/04/2014CT brain w/o contrast| Service Date: 07/04/2014Mammogram| Service Date: 08/11/2013Co lonoscopy| Service Date: 12/2009sabaceous cyst from left side neck| Service Date: 1972wi teeth extraction| Service Date: 1968Tonsillectomy and adenoidectomymammogram-08/08 Medications amLODIPine(Norvasc 10 mg oral tablet), 10 mg= 1 tab, PO, Daily, 3 refills amoxicillin(amoxicillin 500 mg oral capsule), 2000 mg= 4 cap, PO, As indicated, 3 refills ascorbic acid(Vitamin C) aspirin(aspirin 81 mg oral tablet, chewable), 81 mg= 1 tab, PO, Daily, 3 refills calcium-vitamin D(Caltrate 600+D Soft Chews), Daily ferrous sulfate(Slow Fe (as elemental iron) 45 mg oral tablet, extended release), See Instructions furosemide(furosemide 20 mg oral tablet), 20 mg= 1 tab, PO, qMonWedFri, 11 refills hydrALAZINE(hydrALAZINE 10 mg oral tablet), 20 mg= 2 tab, PO, bid, 3 refills metoprolol(metoprolol succinate 25 mg oral tablet, extended release), 25 mg= 1 tab, PO, qhs, 3 refills multivitamin, 1 tab, PO, Daily omega-3 polyunsaturated fatty acids(Fish Oil oral capsule), See Instructions pravastatin(pravastatin 20 mg oral tablet), 20 mg= 1 tab, PO, qhs, 3 refills ubiquinone(Co-Q10 100 mg oral capsule), 200 mg= 2 cap, PO, Daily valsartan(valsartan 320 mg oral tablet), 320 mg= 1 tab, PO, Daily, 3 refills zinc acetate(zinc (as acetate) 25 mg oral capsule) Allergies NKA Social History Smoking Status Never smoked cigarettes Family History Cancer of colon: Mother. High Blood Pressure: Sister. Hypertension: Mother. Health Status Family Member(s) Immunizations Vaccine Date Status influenza virus vaccine, inactivated 01/29/2024 Recorded SARS-CoV-2 (COVID-19) mRNA-vacc - [id number] 12/12/2023 Recorded SARS-CoV-2 (COVID-19) mRNA-vacc - [id number] 12/11/2023 Recorded RSV vaccine, preF A-preF B, recombinant 01/15/2023 Recorded influenza virus vaccine, inactivated - Not Given Comments : Patient Refuses Patient requested low dose flu vaccine due to side effects of high dose flu vaccine. influenza virus vaccine, inactivated 01/05/2023 Given Comments : Patient declined high dose flu. SARS COVID Vaccine Unspecified 12/03/2022 Recorded influenza virus vaccine, inactivated 01/02/2022 Given Comments : Jessica Singh MA SARS-CoV-2 mRNA (Pfizer 12+) bivalent 12/02/2021 Recorded Comments : 2022-01-02: Historical information-source unspecified SARS-CoV-2 (COVID-19) mRNA-1273 vaccine 07/04/2021 Recorded Comments : 2022-01-02: Historical information-source unspecified SARS-CoV-2 mRNA (tohollyeran 5y-11y) 07/03/2021 Recorded influenza virus vaccine, inactivated 12/27/2020 Given Comments : At the patients request, she received the low dose influenza shot verified by Zaid Jackson LPN SARS-CoV-2 (COVID-19) mRNA BNT-162b2 vax 12/10/2020 Recorded Comments : 2020-12-27: Historical information-source unspecified SARS-CoV-2 (COVID-19) mRNA BNT-162b2 vax 04/21/2020 Recorded Comments : 2020-12-27: Historical information-source unspecified SARS-CoV-2 (COVID-19) mRNA BNT-162b2 vax 03/31/2020 Recorded Comments : 2020-12-27: Historical information-source unspecified influenza virus vaccine, inactivated 12/22/2019 Given zoster vaccine, inactivated 04/2019 Recorded Comments : [facility] zoster vaccine, inactivated 03/11/2019 Recorded Comments : 2020-12-27: Historical information-source unspecified zoster vaccine, inactivated 01/06/2019 Recorded Comments : 2020-12-27: Historical information-source unspecified zoster vaccine, inactivated 12/2018 Recorded Comments : [facility] influenza virus vaccine, inactivated 12/17/2018 Given influenza virus vaccine, inactivated 12/10/2017 Given pneumococcal 23-valent vaccine 06/04/2017 Given influenza virus vaccine, inactivated 12/05/2016 Given tetanus/diphtheria/pertuss, acel (Tdap) 07/18/2016 Given pneumococcal 13-valent vaccine 06/07/2016 Given influenza virus vaccine, inactivated 12/07/2015 Given influenza virus vaccine, inactivated 11/16/2014 Given influenza virus vaccine, inactivated 12/09/2013 Given influenza virus vaccine, inactivated 12/02/2012 Given zoster vaccine live 12/07/2011 Recorded influenza virus vaccine, inactivated 11/06/2011 Given tetanus toxoids-diphtheria, Td (Adult) 02/27/2005 Recorded Recommendations Health Maintenance Pending(in the next year) OverDue Medicare Annual Wellness Visit due01/02/23and every 1year Due Adult Social Determinants of Health Screening due02/08/24Unknown Frequency Hepatitis C Screening due02/08/24One-time only Due In Future Adult Influenza Vaccine not due until08/25/24and every 1year Satisfied(in the past 1 year) Satisfied Adult COVID-19 Vaccination on12/12/23.Satisfied by MD Warren Ravishankar E Adult Influenza Vaccine on01/29/24.Satisfied by MD Warren Ravishankar E Body Mass Index on02/08/24.Satisfied by JEM Nicolas Angela Breast Cancer Screening on10/03/23.Satisfied by JEM Nicolas Angela Electronic Signature on File Electronically Reviewed/Signed by: Dary Warren MD Author Signature Dt/Tm:02/08/2024 04:08 PM Department of Family Medicine [facility]ER Patient Care team information Care Team Personnel Name: EAGLE Alva Tara Position: Nurse Pract - Family Med Member Role: Lifetime Relationship Address: [address] [place] [address] [place] Name: MD Kelvin, Dary Cazares Position: Physician Member Role: Primary Care Provider Address: [address] [place] [id number] [place] Name: TEDDY Balderrama, Buffy [place] Position: Physician Asst Exmpt - CT Surgery Member Role: Lifetime Relationship Address: [address] [place] [address] Care Team Related Persons Name: PAT BLANK"
--- OUTSIDE RECORDS SUMMARY | 2024-03-28 09:16 | External Medical Summary | Summary of Care ---
Author Name Unknown Organization [facility] [address] [facility] [address] Phone [phone] Care Team Providers Care Pre Assembly Wirer Name Role Phone Dary Warren MD Primary Care Provi jennifer Reason for Visit * Reason Onset Date Comments Medical Nutrition Therapy 01/18/2024 Encounter Details Date Type Department Care Team (Late st Contact Info) Description 01/18/2024 10:30 AM EST Scheduled Telephone Augusta Soljeronimo [address] [place] [phone] Ester Kaur, ARIADNA [address] [place] [phone] Allergies No known active allergiesdocumented as of this encounter (statuses as of 01/18/2024) Medications hydrALAZINE HCl 10 MG Oral Tablet (Apresoline) take 2 tablets by mouth twice daily 360 Tablet 3 01/15/2024 6:43 PM EST 07/02/2023 Active amLODIPine Besylate 10 MG Oral Tablet (Norvasc) Take 1 tablet by mouth daily 90 Tablet 3 11/07/2023 9:55 AM EDT 08/07/2023 Active documented as of this encounter (statuses as of 01/18/2024) Social History Tobacco Use Types Packs/Day Years [...] on file documented as of this encounter Miscellaneous Notes * Telephone Encounter - Ester Kaur RDN - 01/18/2024 12:46 PM EST Contacted pt to follow-up after initial nutrition visit from November 18. [facility] she has been doing well with her diet regimen. She has been reviewing labels and aiming for 7% or lower of daily value for sodium. [facility] she is surprised at the sugar content of many foods. Encouraged her to also review total grams of carb's from labels. [facility] she has been trying to increase her fluid intake anduse the diabetes plate model for at least 1 meal daily. [facility] she was walking regularly until a couple days ago. Currently she is doing some housework-discussed that these tasks count as part of heractivity level. Reminded her of upcoming nutrition follow-up appointment on March 03. States rose come to the appointment weather permitting. Ester Kaur RDN, Clinical Dietitian II, [facility] Clinical Nutrition Services [facility] [phone] [place] [phone] Available via [employer] Portal documented in this encounter Plan of Treatment Upcoming Encounters Date Type Department Care Team (Late st Contact Info) Description 03/03/2024 2:30 PM EST Nutrition Services Nutrition, [facility] [address] [place] [phone] Ester Kaur RDN [address] [place] [phone] Health Maintenance Due Date Last Done Comments Lipid Panel 1950 Depression Screening 1962 Hepatitis C Screening 1968 Cologuard 1995 Colonoscopy 1995 Colorectal Cancer Screening 1995 Fecal Occult Blood Test 1995 Sigmoidoscopy 1995 COVID-19 Vaccine ( season) 2023 12/03/2022, 12/02/2021, 07/04/2021, Additional history exists Influenza Vaccine (FLU shot) (#1) 2023 01/05/2023, 01/05/2023, 01/02/2022, Additional history exists Mammogram 10/02/2024 10/03/2023, 0802/2022, 09/23/2021 DTap/Tdap Vaccines (2 - Td or Tdap) 07/18/2026 07/18/2016 DXA Scan 03/29/2029 03/29/2022 Pneumococcal Vaccine: 65+ Years Completed 06/04/2017, 06/07/2016 Zoster Vaccines Completed 03/11/2019, 12/27, 12/07/2011 HPV (Gardasil) Vaccine Aged Out No lo [...] filedocumented as of this encounter Care Teams Pre Assembly Wirer Relationship Specialty Start Date End Date Dary Warren MD [address] [facility] [address] [place] [address] PCP - General Family Medicine 05/10/22 documented as of this encounter
--- OUTSIDE RECORDS SUMMARY | 2024-03-28 09:16 | External Medical Summary | Summary of Care ---
Author Name Unknown Organization [facility] Address [address] [place] [address] Phone [phone] Care Team Providers Care Surveyor Geodetic Name Role Phone Dary Warren MD Primary Care Provi jennifer Reason for Visit * Reason Comments Medical Nutrition Therapy * Evaluate & Treat - Unlimited Visits (Within 10 days (routine)) - Authorized Specialty Diagnoses / Procedures Referred By See gomez Referred To Contact Dietitian / Nutrition Services Diagnoses Unspecified diastolic (congestive) heart failure (HCC) Nausea Anemia Jordyn Fletcher DO [address] [place] [address] Referral ID Status Reason Start Date Expiration Date Visits Requested Visits Authorized [id number] Authorized Specialty Services Required 08/22/2023 [id number] Encounter Details Date Type Department Care Team (Latest Contact Info) Description 11/19/2023 1:00 PM EDT [facility] [address] [facility] [address] Ester Kaur RDN [address] [place] [address] Overweight (BMI 25.0-29.9)*; Dietary counseling and surveillance; Diastolic congestive heart failure, unspecified HF chronicity (HCC) [I50.30] Allergies No known active allergiesdocumented as of this encounter (statuses as of 11/19/2023) Medications Medication Sig Dispensed Refills Start Date End Date Status hydrALAZINE HCl 10 MG Oral Tablet (Apresoline) take 2 tablets by mouth twice daily 360 Tablet 3 07/02/2023 Active amLODIPine Besylate 10 MG Oral Tablet (Norvasc) Take 1 tablet by mouth daily 90 Tablet 3 08/07/2023 Active documented as of this encounter (statuses as of 11/19/2023) Social History Tobacco Use Types Packs/Day Years [...] years and over) Not on file 08/14/2023 Sex and Gender Information Value Date Recorded Sex Assigned at Not on file Gender Identity Not on file Sexual Orientation Not on file Job Start Date Occupation Industry Not on file Not on file Not on file documented as of this encounter Last Filed Vital Signs Vital Sign Reading Time Taken Comments Blood Pressure - - Pulse - - Temperature - - Respiratory Rate - - Oxygen Saturation - - Inhaled Oxygen Concentration - - Weight 66 kg (145 lb 8 oz) 11/19/2023 1:04 PM ED T Height 154.9 cm (5' 1") 11/19/2023 1:04 PM EDT Body Mass Index 27.49 11/19/2023 1:04 PM EDT documented in this encounter Patient Instructions * Patient Instructions* Ester Kaur RDN - 11/19/2023 2:05 PM EDT Patient will use diabetes plate model for eating at least 1 meal daily. Patient will increase fluid intake to at least 32 ounces daily most days of the week. Patient will continue to review nutrition labels for sodium content. Aim for 7% of daily value or lower for most food choices. Patient will continue with present level of activity. When weather is inclement, increase other activity that can be done inside. Be sure to remind your PCP to forward most recent progress note and labs to be via fax. documented in this encounter Progress Notes * Ester Kaur, ARIADNA - 11/19/2023 1:06 PM EDT NUTRITION CONSULT - OUTPATIENT [place] Name: Chelle Bowles Location: [facility] Date: 11/19/2023 Time: 1:06 PM Patient was identified by name and date. Patient was seen [id number] in the clinic. Reason for Referral: Overweight/Obesity NUTRITION ASSESSMENT: Client History Patient is a 73 year old female being seen for above issue. She notes a previous surgery on heart valve 2 years ago. She notes being seen by an rn internship recently for nausea and diarrhea-notes this was an acute issue, and currently denies GI issues. She admits to a history of anemia. States she was seen by her PCP 7-10 days after nutrition referral was ordered. Support System: friends Barriers To Learning: None Special Education Needs: None Food/Nutrition-Related History Describes typical diet history/24 hr recall Breakfast: skips or 1 whole bagel with jelly or cottage cheese and fruit, coffee with sweetened creamer Snacks: none Lunch: chicken with lemon, russet potatoes with chicken broth and red onion or leftover rodolfo hair pasta with mussels, flavored water Snacks: sometimes Sargentos cheese and crackers Dinner: salad with green pepper, carrots, balsamic red wine dressing, PB crackers, flavored water, piece of rodolfo food cake with apple slices Snacks: sometimes 2 prunes Drinks: less than 1 quart daily Restaurant meals: at least once a month, weekly during football season Alcohol: None Tobacco Use: No Diet Recall/Food Logs Indicate: AREAS FOR IMPROVEMENT: Poor meal distribution Inadequate fruit and vegetable intake Inadequate fluid intake POSITIVE: Portion control Uses calorie free beverages Food and Nutrient Intake and other pertinent information: Patient complains of weight distribution in other areas of her body but notes no significant weight gain. She is being followed by Cardiologywho recommends a low sodium diet but she was unable to specify an exact amount for was to limit to daily. She prepares many meals for herself; states she doesn't use salt. Her larger meal is at lunch. States she is interested in taking Wegovy for weight management, but states her BMI does not qualify for reimbursement of this medicine. States she reviews nutrition labels for sodium content. Food allergies and/or food intolerances: none Pertinent Medications (Current): Current Outpatient Medications Medication Sig Dispense Refill hydrALAZINE HCl 10 MG Oral Tablet (Apresoline) take 2 tablets by mouth twice daily 360 Tablet 3 amLODIPine Besylate 10 MG Oral Tablet (Norvasc) Take 1 tablet by mouth daily 90 Tablet 3 No current facility-administered medications for this visit. Supplements: Calcium, Fish oil, Iron, MVI, and CoQ-10 Prior Nutrition Counseling: No prior counseling Physical Activity: walking 30 minutes daily when weather is nice. Twister board for 10 minutes usually daily, pedal bike in the evening daily Anthropometric Measurements Ht 1.549 m (5' 1") | Wt 66 kg (145 lb 8 oz) | BMI 27.49 kg/m | BSA 1.69 m Wt Readings from Last 5 Encounters: 11/19/23 66 kg (145 lb 8 oz) Weight Change: stable per pt report BMI: BMI Readings from Last 1 Encounters: 11/19/23 27.49 kg/m Nutrition-Focused Physical Findings Overall appearance: overweight Digestive system: Appetite: good, diarrhea Nerves and cognition: Awake, alert and Oriented Biochemical Data, Medical Tests, and Procedures None available-pt admits to having anemia NUTRITION DIAGNOSIS Overweight/obesity related to Poor meal distribution, Inadequate fruit and vegetable intake, Inadequate fluid intake, excessive energy intake compared to estimated needs as evidenced by Reported dietrecall, Body mass index is 27.49 kg/m. NUTRITION INTERVENTION: NUTRITION EDUCATION Initial/brief nutrition education NUTRITION COUNSELING Strategies Other Education Material: Academy of [employer]etics Nutrition Care Manual Handout -Heart Healthy Label Reading Tips Other: diabetes plate model Nutrition Prescription: Diet: Weight Management Daily Calorie Needs: 1500 Kcals Daily Protein Needs: 60-65 Grams protein Goals: Patient will use diabetes plate model for eating at least 1 meal daily. Patient will increase fluid intake to at least 32 ounces daily most days of the week. Patient will continue to review nutrition labels for sodium content. Aim for 7% of daily value or lower for most food choices. Patient will continue with present level of activity. When weather is inclement, increase other activity that can be done inside. Dietitian Action: Encouraged patient to increase intake of low-carb vegetables. Reviewed basic principles of eating healthy to manage weight. Encouraged her to decrease overall intake of fats to minimize caloric intake to promote desired weight loss. Reviewed diabetes plate model with her. Reviewedbasics of reading nutrition labels. Encouraged her to choose foods low in fat and to aim for 7% or lower of daily value for sodium for most food choices. Reviewed some high- sodium foods to avoid. Encouraged her to increase fluids to at least 32 ounces daily. Encouraged her to continue with present level of activity when weather becomes inclement. Patient asking about having rodolfo food cake as a low-fat food but asking about eating it with a moist food such as fruit to help with swallowing it. Encouraged her to consume only a small piece at a time. Encouraged pt to obtain recent progress note and labs to be forwarded to me via fax-number provided. Recommendations to Ordering Provider: Continue current plan of nutrition care. NUTRITION MONITORING AND EVALUATION: The following will be monitored and evaluated at the next visit: Monitor weight. Monitor goals and progress. Monitor activity regimen. Plan:Patient scheduled to return in 3 months; dietitian phone # given for future reference. 75 minutes Medical Nutrition Therapy 15 min (8-22 min) 30 min (23-37 min) 45 min (38-52 min) 60 min (53-67 min) 75 min (68-82 min) 90 min (83-97 min) 105 min (98-113 min) Time In: 1302 (11/19/23 1412) Time Out: 1412 (11/19/23 1412) ARIADNA Freedman GRAYS RODRIGUEZ documented in this encounter Plan of Treatment Upcoming Encounters Date Type Department Care Team (Late st Contact Info) Description 03/03/2024 2:30 PM [facility] Nutrition Services Sol Deras Rodriguez [address] [facility] [place] [address] Ester Kaur RDN [address] [place] [address] Scheduled Referrals Name Type Priority Associated Diagnoses Orde r Schedule NUTRITION-CLINICAL DIETITIAN REFERRAL OP Referral Within 10 days (routine) Unspecified diastolic (congestive) heart failure (HCC) Nausea Anemia Ordered: 08/22/2023 Health Maintenance Due Date Last Done Comments Lipid Panel 1950 Depression Screening 1962 Hepatitis C Screening 1968 Cologuard 1995 Colonoscopy 1995 Colorectal Cancer Screening 1995 Fecal Occult Blood Test 1995 Sigmoidoscopy 1995 COVID-19 Vaccine ( season) 2023 12/03/2022, 12/02/2021, 07/04/2021, Additional history exists Influenza Vaccine (FLU shot) (#1) 2023 01/05/2023, 01/05/2023, 01/02/2022, Additional history exists Mammogram 10/02/2024 10/03/2023, 08/0 02/2022, 09/23/2021 DTap/Tdap [...] [I50.30] documented in this encounter Care Teams Surveyor Geodetic Relationship Specialty Start Date End Date Dary Warren MD [address] [place] [address] PCP - General Family Medicine 05/10/22 documented as of this encounter
--- OUTSIDE RECORDS SUMMARY | 2024-03-28 09:16 | External Medical Summary | Continuity of Care Document ---
Author Name Unknown Organization [facility] [address] [facility] Address [address] [place], [place] [id number] Care Team Providers Care Belt Loop Machine Operator Name Role Phone Dary Warren Debora Primary Care Physician [phone] [id number] Date[facility] 01/03/24 - 01/03/24 [facility] [address], [address] [place] [address] [phone] Encounter Diagnosis Aortic stenosis(Discharge Diagnosis) - 01/03/24 Hyperlipidemia(Discharge Diagnosis) - 01/03/24 HYPERTENSION(Discharge Diagnosis) - 01/03/24 Diastolic CHF(Discharge Diagnosis) - 01/03/24 S/P TAVR (transcatheter aortic valve replacement)(Discharge Diagnosis) - 01/03/24 Dizziness(Discharge Diagnosis) - 01/03/24 Discharge Disposition: Home or Self Care Attending Physician: DO Cope Jason D Allergies, Adverse Reactions, Alerts No Known Allergies Assessment and Plan Extracted from: Title:Cardiology Office Visit Note Author:DO Cope Jason D Date:01/03/24 1.Aortic stenosis 2.Diastolic CHF 3.Hyperlipidemia 4.HYPERTENSION 5.S/P TAVR (transcatheter aortic valve replacement) 6. Dizziness I reviewed her echo from last summer with her. Her LV function is preserved without wall motion abnormalities. Her TAVR valve is functioning normally. Her EKG today reveals sinus bradycardia 57 bpm with an anterior septal [place] age-indeterminate nonspecific ST changes. If you compare this to her 2021 EKG the aberrant conduction was last ectopy has resolved otherwise the EKG is unchanged. Her blood pressure is slightly elevated but in light of her dizziness I was reluctant to increase her hydralazine at this point. I discussed with her I think she needs a 4-week event recorder to rule out high degree AV block as a cause for her dizziness especially in light of her previous TAVR as well as rule out any ventricular arrhythmias that could be leading to lightheadedness. She is agreeable to this. As noted her TAVR valve is functioning normally. Her LV function is preserved. She will see Corrine in 3 months. I will see her in a year. Will follow-up via phone with regards to the benefit. Immunizations Given and Recorded Vaccine Date Status Refusal Reason SARS-CoV-2 (COVID-19) mRNA-vacc - [id number] 12/11/23 Recorded influenza virus vaccine, inactivated 1 01/05/23 Gi [...] influenza virus vaccine, inactivated 11/06/11 Give n SARS COVID Vaccine Unspecified 12/03/22 Recorded SARS-CoV-2 [...] beforedental and other procedures as directed, Pharmacy: [facility] of [facility] Start Date: 01/24/22 Status: Ordered Arexvy preservative-free intramuscular injection Start: 01/05/23 11:10:00 AM EST, 0.5 mL, IM, ONCE, Disp# 0.5 mL, Pharmacy: [facility] of [facility] Start Date: 01/05/23 Status: Ordered aspirin 81 mg oral tablet, chewable Start: 10/10/21 10:14:00 AM EDT, 1 tab, PO, Daily, Disp# 30 tab, Refills: 3, Pharmacy: [facility] [place] Start Date: 10/10/21 Stop Date: 02/07/22 Status: Ordered Caltrate 600+D Soft Chews Start: 06/24/10 1:31:00 PM EDT, Daily, tab Start Date: 06/24/10 Status: Ordered Fish Oil oral capsule Start: 06/14/11 1:37:00 PM EDT, See Instructions, No Dosage Noted One Daily Start Date: 06/14/11 Status: Ordered furosemide 20 mg oral tablet Start: 10/31/23 2:26:00 PM EDT, 1 tab, PO, qMonWedFri, Disp# 30 tab, Refills: 11, 1 tab MWF, Pharmacy: [facility] [place] [id number] Start Date: 10/31/23 Status: Ordered hydrALAZINE 10 mg oral tablet Start: 07/02/23 4:09:00 PM EDT, 2 tab, PO, bid, Disp# 360 tab, Refills: 3, Pharmacy: [facility] Start Date: 07/02/23 Status: Ordered metoprolol succinate 25 mg oral tablet, extended release Start: 08/27/23 4:31:00 PM EDT, 1 tab, PO, qhs, Disp# 90 tab, Refills: 3, Pharmacy: [facility] [place] [id number] Start Date: 08/27/23 Status: Ordered multivitamin Start: 12/05/16 11:11:00 AM EDT, 1 tab, PO, Daily Start Date: 12/05/16 Status: Ordered Norvasc 10 mg oral tablet Start: 08/07/23 9:10:00 AM EDT, 1 tab, PO, Daily, Disp# 90 tab, Refills: 3, [facility] Start Date: 08/07/23 Status: Ordered pravastatin 20 mg oral tablet Start: 03/26/23 4:13:00 PM EST, 1 tab, PO, qhs, Disp# 90 tab, Refills: 3, Pharmacy: [facility] [place] [id number] Start Date: 03/26/23 Status: Ordered Slow Fe (as elemental iron) 45 mg oral tablet, extended release Start: 12/05/16 11:12:00 AM EDT, See Instructions, 1 tab PO Daily every other day Start Date: 12/05/16 Status: Ordered valsartan 320 mg oral tablet Start: 06/14/23 8:07:00 AM EDT, 1 tab, PO, Daily, Disp# 90 tab, Refills: 3, Pharmacy: [facility] [place] [id number] Start Date: 06/14/23 Status: Ordered Vitamin C Start: 01/03/24 11:08:00 AM EST Start Date: 01/03/24 Status: Ordered zinc (as acetate) 25 mg oral capsule Start: 01/03/24 11:08:00 AM EST Start Date: 01/03/24 Status: Ordered Mental Status 01/03/24 Barriers to Learning one year None evide nt Mandatory Health Literacy Documentation Yes Health Literacy Communication Barriers N ever Primary Language Thai Problem List Condition Confirmation Course Effective Dates Status H ealth Status Informant Anemia Confirmed Active Aortic insufficiency Confirmed Active Aortic valve stenosis Confirmed Active Diastolic CHF Confirmed Active Diverticulosis Confirmed Active S/P TAVR (transcatheter aortic valve replacement) Confirmed Active Hyperlipidemia Confirmed Active HYPERTENSION Confirmed Active OSTEOPOROSIS Confirmed Active Diagnosis Diagnosis Type Effective Dates Health Status Clinical Service Informant Diastolic CHF Discharge Diagnosis 01/03/24 HYPERTENSION Discharge Diagnosis 01/03/24 Hyperlipidemia Discharge Diagnosis 01/03/24 Aortic stenosis Discharge Diagnosis 01/03/24 S/P TAVR (transcatheter aortic valve replacement) Discharge Diagnosis 01/03/24 Dizziness Discharge Diagnosis 01/03/24 Non-Specified Procedures Procedure Date Related Diagnosis Body [...] Most recent to oldest [Reference Range]: 1 Patient Weight 66 kg (01/03/24 11:16 AM) Heart Rate 70 bpm (01/03/24 11:16 AM) Blood Pressure 138/64mmHg (01/03/24 11:16 AM) BP Location # 1 Left Arm (01/03/24 11:16 AM) Social History Social History Type Response Smoking Status Former Smoker, quit within 31 days - 1 yr Sex Female Sex Representation Female (finding) EKG study * Contributor_system, MUSE01: VERIFY, PERFORM Event Display: EKG Authored Date: Please click on link to see image. Cardiology Outpatient Note * DO Cope Jason D: PERFORM Event Display: Cardiology Outpt Note Authored Date: [id number] Primary Care Provider MD Kelvin, Dary Cazares Chief Complaint 1 year f/u TAVR htn History of Present Illness She denies any chest pain or chest pressure. She denies significant shortness of breath. She notes since her TAVR her degree of dyspnea has improved. She had her COVID shot about 3 weeks ago. She notes each of the last 2 weeks she has had an episode where all of a sudden she gets lightheaded. The first occurred with her standing in her kitchenand there was no recent change in position and the second occurred in the grocery store again with no change in position. She held onto something and it lasted about 3 to 5 seconds in the past. She never had tunnel vision. She never felt palpitations or fluttering with it. She notes she didnot feel like she was at the point that she would pass out. She has no lower extremity edema. He denies any fevers or chills. She gets regular dental work and takes her antibiotics prior to the dentist. Review of Systems PAST MEDICAL HISTORY: 1. Severe aortic stenosis, status post TAVR with an Abreu Sherrill 3 Ultra valve 09/2021. 2. Minimal preoperative coronary artery disease by cardiac catheterization. 3. Normal LV size and function with normal gradients across the TAVR October 02/2023. 4. Chronic diastolic heart failure. 5. Hypertension. 6. Hyperlipidemia. 7. Status post large retroperitoneal hematoma post-TAVR, not requiring surgical intervention. 8. Osteoporosis. 9. History of anemia. Physical Exam Vitals & Measurements HR:70(Monitored) BP:138/64 SpO2:96% WT:66kg WT:66.000kg(Dosing) EXAM: She is awake, alert and oriented x3. She is in no acute distress. HEENT: 2+ carotid upstrokes, no evidence of carotid bruits. Lungs: Clear to auscultation bilaterally. No rales, rhonchi, wheezing. Heart: Regular rate and rhythm. She has a soft systolic ejection murmur at the right sternal border. There were no appreciable diastolic murmurs. Abdomen: Soft, nontender, distended. Positive bowel sounds. Extremities: No clubbing, cyanosis or edema. Psychiatric: Affect appeared appropriate. Assessment/Plan 1.Aortic stenosis 2.Diastolic CHF 3.Hyperlipidemia 4.HYPERTENSION 5.S/P TAVR (transcatheter aortic valve replacement) 6. Dizziness I reviewed her echo from last summer with her. Her LV function is preserved without wall motion abnormalities. Her TAVR valve is functioning normally. Her EKG today reveals sinus bradycardia 57 bpm with an anterior septal [place] age- indeterminate nonspecific ST changes. If you compare this to her 2021 EKG the aberrant conduction was last ectopy has resolved otherwise the EKG is unchanged. Her blood pressure is slightly elevated but in light of her dizziness I was reluctant to increase her hydralazine at this point. I discussed with her I think she needs a 4-week event recorder to rule out high degree AV block as a cause for her dizziness especially in light of her previous TAVR as well as rule out any ventricular arrhythmias that could be leading to lightheadedness. She is agreeable to this. As noted her TAVR valve is functioning normally. Her LV function is preserved. She will see Corrine in 3 months. I will see her in a year. Will follow-up via phone with regards to the benefit. Problem List/Past Medical History Ongoing Anemia Aortic [...] cyst from left side neck| Service Date: 1972wisdom teeth extraction| Service Date: 1968Tonsillectomy and adenoidectomymammogram-08/08 [...] mg= 1 tab, PO, qhs, 3 refills RSV vaccine preF3, recombinant(Arexvy preservative-free intramuscular injection), 60 mcg= 0.5 mL, IM, ONCE valsartan(valsartan 320 mg oral tablet), 320 mg= 1 tab, PO, Daily, 3 refills zinc acetate(zinc (as acetate) 25 mg oral capsule) Allergies NKA Social History Smoking Status Never smoked cigarettes Family History Cancer of colon: Mother. High Blood Pressure: Sister. Hypertension: Mother. Health Status Family Member(s) Electronic Signature on File CC: Dary Warren MD [address] [facility] [address] [facility] [address] Electronically Reviewed/Signed by: Olvin Cope DO Author Signature Dt/Tm:01/03/2024 12:00 PM Bight Makerinfant lead teacher [facility] [place] [place] [address] JDF Patient Care team information Care Team Personnel Name: EAGLE Alva Tara Position: Nurse Pract - Family Med Member Role: Lifetime Relationship Address: [address] [place] [address], [place] [address] [place] Name: MD Kelvin, Dary Cazares Position: Physician Member Role: Primary Care Provider Address: [address] [place] [id number] Name: TEDDY Balderrama, Buffy [place] Position: Physician Asst Exmpt - CT Surgery Member Role: Lifetime Relationship Address: [address] [place] [id number] Care Team Related Persons Name: PAT BLANK"
--- NOTE | 2024-03-28 09:24 | History & Physical Report ---
Date of Service March 28, 2024 Assessment & Plan (1) Closed right hip fracture: Plan: Right intertrochanteric hip fracture Following mechanical fall, slipped on ice. No head strike. Is not on blood thinners. Is on baby aspirin daily last taken 03/27/2024 X-ray hip/pelvis/Femur: Intertrochanteric right hip fracture RCRI class I 6% risk due to history of NYHA class I2 heart failure. Her CHF has been stable/resolved since AVR and Sunday Lasix maintenance and she has no history of ischemic heart disease. Last echo was normal. Recommend proceeding with surgery if/as recommended by operative team Neurovascularly intact. Maintain [facility] consulted continue Tylenol, breakthrough scaled hydromorphone for pain control. Pain adequately controlled at time of bedside visit History of TAVR, hypertension, hyperlipidemia Follow-up with [facility] [place] cardiology. Had history of NYHA class I-II symptoms which resolved following TAVR Cath 06/2021: Minimal CAD, normal right-sided pressures EKG sinus without ischemic changes at baseline Last echo 10/2021: EF 60 to 65%, well-seated bioprosthetic AVR Continue amlodipine Continue atorvastatin Hold valsartan perioperatively Continue metoprolol 25 mg at bedtime Patient appears near euvolemic on admission. Will continue gentle IVF at maintenance rate of 70, MWF 20 mg p.o. Lasix temporarily held while NPO/on maintenance fluids. Postop discontinue fluids and resume p.o. Lasix Baby aspirin daily held preoperatively, resume postop. Patient has had some stomach upset with this recently although no melena/hematochezia. Will add H2 twice daily for gastric prophylaxis. DVT prophylaxis: Pharmacoprophylaxis held preoperatively, SCDs Diet: N.p.o. CODE STATUS: DNR/DNI. Discussed with patient at bedside Disposition: MSO (2) Hypertension: (3) Hyperlipidemia: (4) S/P TAVR (transcatheter aortic valve replacement): (5) History of CHF (congestive heart failure): History of Present Illness Primary Care Provider: Megha Warren MD Chelle is a 74-year-old female with a past medical history of hyperlipidemia, hypertension presents to the ER after falling on ice with a RIGHT femoral hip fracture She was seen at the bedside. She reports that she is in usual state health and was walking out to take out the trash when she fell on black ice that she did no t realize was there and immediately fell to her right hip with inability to bear weight and pain at the anterior and medial side of her hip. She did not have any lightheadedness or dizziness that caused her to fall. She did not hit her head or lose consciousness. She has not been sick recently and denies fever, chills, sweats, shortness of breath, difficulty breathing, nausea/vomiting/diarrhea/constipation/melena/hematochezia. She does note she has had a little bit of intermittent nausea with aspirin recently but none currently. She is not allergic to any medications, she did not take her medications before being brought in this morning. She does have a history of heart failure with no symptoms and generally doing well on Sunday Lasix on which overall has resolved since she had a TAVR 2 years ago. Cath at that time did not show any evidence of ischemic disease. Otherwise she has normally well-controlled hypertension and hyperlipidemia, denies other medical problems. No medication allergies. Medical History: Reviewed Medications: Reviewed Surgical History: Reviewed Family history: Reviewed Allergies: Reviewed Social History: No tobacco use, no etoh use Code Status: DNR/DNI Allergies Allergy/AdvReac Type Severity Reaction Status Date / Time No Known Allergies Allergy Verified 07/11/21 07:28 Home Medications Medication Instructions Recorded Confirmed Type atorvastatin 10 mg tablet 10 mg PO DAILY 05/22/20 07/11/21 History calcium 600 mg (as 1 tab PO DAILY 05/22/20 07/11/21 History carbonate)-vitamin D3 5 mcg (200 unit) tablet lisinopril 20 1 tab PO DAILY 05/22/20 05/22/20 History mg-hydrochlorothiazide 12.5 mg tablet multivitamin 1 tab PO DAILY 05/22/20 07/11/21 History omega-3 fatty acids 1,250 mg PO Q2D 05/22/20 07/11/21 History amlodipine 10 mg tablet 10 mg PO DAILY 07/11/21 07/11/21 History ferrous sulfate 143 mg PO DAILY 07/11/21 07/11/21 History hydralazine 10 mg tablet 20 mg PO BID 07/11/21 07/11/21 History metoprolol succinate 25 mg 25 mg PO DAILY 07/11/21 07/11/21 History tablet,extended release 24 hr valsartan 320 mg tablet 320 mg PO DAILY 07/11/21 07/11/21 History Past Med/Surg History Problem List (Updated 03/28/24 @ 09:38 by Jakob Reis MD) History of CHF (congestive heart failure) S/P TAVR (transcatheter aortic valve replacement) Closed right hip fracture Hypertension (Chronic) Hyperlipidemia (Chronic) Abnormal EKG (Acute) Dizziness (Acute) Social History Smoking Status: Former smoker Second Hand Exposure: No; Do You Dip or Chew Tobacco: No; Hx Alcohol Use: No Hx Substance Use: No Preferred Language: Micronesian Beliefs That Will Affect Care: None Current Living Situation: Alone current occupation: Retired Feels Safe at Home: Yes Physical Exam Physical Exam: General: A&Ox3. NAD. Cooperative. HEENT: Atraumatic, normocephalic. Vision and hearing grossly intact Pulm: CTAB A&P. -wheezes, -rales, -rhonchi. Symmetrical chest rise. No increased work of breathing. No respiratory distress. Cardiac: RRR, soft sm. Radial pulses intact and symmetrical. Abdominal: nondistended, soft. BS present. Ext/: RIGHT lower extremity with tenderness to palpation at anterior and medial proximal thigh. Ankle dorsiflexion/plantarflexion/toe wiggle is intact bilaterally. Sensation soft touch is intact in the feet bilaterally. PT pulses intact to palpation bilaterally Results & Data Results & Data Vital Signs (Past 12 Hours) Vital Signs Temp Pulse Resp BP Pulse Ox O2 Del Method 03/28/24 09:00 59 L 18 96 03/28/24 08:51 44 L 14 95 03/28/24 08:42 56 L 93 03/28/24 08:30 59 L 15 98 03/28/24 08:25 52 L 03/28/24 08:22 36.5 C 54 L 14 177/84 H 97 Room Air 03/28/24 08:21 177/84 H PG Care Time/CCT Total # of Minutes Spent Total Time Spent with Patient: Total time spent is greater than 50% in coordination of care (as documented) at patient's floor/unit and/or counseling patient: Coding Level of Care Code 99607 INT INP/OBS CARE 3/75MIN Diagnoses Closed right hip fracture S72.001A Hypertension I10 Hypertension type: unspecified Hyperlipidemia E78.5 S/P TAVR (transcatheter aortic valve replacement) Z95.2 History of CHF (congestive heart failure) Z86.79 (2) Hypertension Hypertension type: unspecified Qualified Code(s): I10 - Essential (primary) hypertension
[2024-03-28 09:29] LABS: Appearance Urine Clear (Clear); Bilirubin Urine Negative (Negative); Blood Urine Negative (Negative); Color Urine Yellow; Glucose Urine UA Negative (Negative); Ketones Urine Negative (Negative); Leukocyte Esterase Urine Negative (Negative); Nitrite Urine Negative (Negative); Protein Urine Negative (Negative); Urobilinogen Urine Negative (Negative); pH Urine 5.5 (4.5-7.5)
--- NOTE | 2024-03-28 09:30 | XRay Report ---
XR pelvis 1-2V routine CLINICAL HISTORY: right hip pain fall COMPARISON: None FINDINGS: Comminuted intertrochanteric fracture of the proximal right femur with the typical deformi ty. No pelvic fractures identified. Left hip normally aligned. IMPRESSION: Intertrochanteric fracture proximal right femur ACT 112: Negative or not required by law. Electronically signed by: Daksha Abernathy M.D. 03/28/2024 9:28 AM
--- NOTE | 2024-03-28 09:30 | XRay Report ---
XR femur RT 2V routine CLINICAL HISTORY: upper thigh pain s/p trauma COMPARISON: None FINDINGS: 2 views of the right femur demonstrate a comminuted intertrochanteric fracture of the prox imal right femur and no distal femoral abnormalities. IMPRESSION: As above ACT 112: Negative or not required by law. Electronically signed by: Daksha Abernathy M.D. 03/28/2024 9:29 AM
--- NOTE | 2024-03-28 09:44 | XRay Report ---
XR chest 1V portable CLINICAL HISTORY: fall, pre-op COMPARISON STUDY: 08/02/2023 FINDINGS: Stable cardiomegaly without pulmonary vascular congestion. No effusion or consolidation. No pneumothorax. No grossly displaced rib fracture seen. IMPRESSION: No acute findings. ACT 112: Negative or not required by law. Electronically signed by: Onofre Molina M.D. 03/28/2024 9:43 AM
[2024-03-28] MEDS: amLODIPine BESYLATE 5 MG TAB PO ONE (10:05)
[2024-03-28] MEDS: FAMOTIDINE 20MG IV PUSH 20 MG/5 ML SYR IV STA (10:05)
--- NOTE | 2024-03-28 10:11 | Orthopedic Consultation ---
Date of Service March 28, 2024 Assessment & Plan (1) Closed right hip fracture: Patient seen and examined in ER. She was educated on this injury and treatment options for this. We recommend surgical fixation/ IM nailing of the right hip/femur. Keep npo for now, possible surgery later today. Will change diet orders if surgery to be done tomorrow. History of Present Illness Reason for Consultation: . Requesting Physician: . . 74 year old patient fell and injured her right hip this morning. She was walking outside when she slipped on some ice. Denies any other injuries. Denies any hip pain prior to this fall. Normally ambulates without any assistive devices. Allergies Allergy/AdvReac Type Severity Reaction Status Date / Time No Known Allergies Allergy Verified 07/11/21 07:28 Home Medications Medication Instructions Recorded Confirmed Type calcium 600 mg (as 1 tab PO QAM 05/22/20 03/28/24 History carbonate)-vitamin D3 5 mcg (200 unit) tablet multivitamin 1 tab PO QAM 05/22/20 03/28/24 History omega-3 fatty acids 1,250 mg PO .Q OTHER DAY 05/22/20 03/28/24 History amlodipine 10 mg tablet 10 mg PO QAM 07/11/21 03/28/24 History ferrous sulfate 143 mg PO .Q OTHER DAY 07/11/21 03/28/24 History hydralazine 10 mg tablet 20 mg PO BID 07/11/21 03/28/24 History metoprolol succinate 25 mg 25 mg PO PM 07/11/21 03/28/24 History tablet,extended release 24 hr valsartan 320 mg tablet 320 mg PO QAM 07/11/21 03/28/24 History CoQ-10 1 cap PO QAM 03/28/24 03/28/24 History aspirin 81 mg tablet,delayed 81 mg PO QAM 03/28/24 03/28/24 History release furosemide 20 mg tablet 20 mg PO .3X WEEKLY 03/28/24 03/28/24 History pravastatin 20 mg tablet 20 mg PO QAM 03/28/24 03/28/24 History Past Med/Surg History Problem List History of CHF (congestive heart failure) S/P TAVR (transcatheter aortic valve replacement) Closed right hip fracture Hypertension (Chronic) Hyperlipidemia (Chronic) Abnormal EKG (Acute) Dizziness (Acute) Social History Smoking Status: Former smoker Second Hand Exposure: No; Do You Dip or Chew Tobacco: No; Hx Alcohol Use: No Hx Substance Use: No Preferred Language: Croatian Beliefs That Will Affect Care: None Current Living Situation: Alone current occupation: Retired Feels Safe at Home: Yes Review of Systems All systems reviewed & are unremarkable except as noted in HPI & below. Physical Exam .alert and oriented. NAD Right leg: shortened and externally rotated. Able to dorsiflex, plantarflex. NVI. No swelling to the knee. Did not assess hip motion due to pain. Results & Data Results & Data Laboratory Results . Diagnostic Findings .xrays of hip and pelvis show a displaced intertroch fx of the right hip PG Care Time/CCT Total # of Minutes Spent Total Time Spent with Patient: Total time spent is greater than 50% in coordination of care (as documented) at patient's floor/unit and/or counseling patient: Coding Level of Care Code 19406 IN/OBS CONSULT LVL 4,60M (57 - DECISION FOR SURGERY) Diagnoses Closed right hip fracture S72.001A
[2024-03-28] MEDS ORDERED: ROCURONIUM BROMIDE 10 MG/ML 5 ML VIAL IV ONE (11:16)
[2024-03-28] MEDS ORDERED: PROPOFOL IV EMULSION 10 MG/ML 20 ML VIAL IV ONE (11:16)
[2024-03-28] MEDS ORDERED: LIDOCAINE 2% 2 ML VIAL/AMP(20MG/ML) INFIL ONE (11:16)
[2024-03-28] MEDS ORDERED: ONDANSETRON INJ 2 MG/ML 2 ML VIAL ONE (11:17)
--- NOTE | 2024-03-28 11:27 | Anesthesiology Consultation ---
Date of Service March 28, 2024 Assessment & Plan (1) Encounter for pre-operative examination: Chart Review Chart Review: Acceptable Risk for Surgery and Patient NOT seen in Pre Admission Testing Hospitalist note 03/28/24: Assessment & Plan (1) Closed right hip fracture: Plan: Right intertrochanteric hip fracture Following mechanical fall, slipped on ice. No head strike. Is not on blood thinners. Is on baby aspirin daily last taken 03/27/2024 X-ray hip/pelvis/Femur: Intertrochanteric right hip fracture RCRI class I 6% risk due to history of NYHA class I2 heart failure. Her CHF has been stable/resolved since AVR and Sunday Lasix maintenance and she has no history of ischemic heart disease. Last echo was normal. Recommend proceeding with surgery if/as recommended by operative team Consults Requested none History Surgery Operation Date: 03/28/24 10:50 Proposed Procedures p Right Trochanteric Femoral Nail - Rodo Cottrell DO Height/Weight Height: 5 ft 1 in Weight: 74.1 kg Allergies Allergy/AdvReac Type Severity Reaction Status Date / Time No Known Allergies Allergy Verified 07/11/21 07:28 Medications Home Medications Medication Instructions Recorded Confirmed Last Taken calcium 600 mg (as 1 tab PO QAM 05/22/20 03/28/24 03/27/24 carbonate)-vitamin D3 5 mcg (200 unit) tablet multivitamin 1 tab PO QAM 05/22/20 03/28/24 03/27/24 omega-3 fatty acids 1,250 mg PO .Q OTHER DAY 05/22/20 03/28/24 03/26/24 amlodipine 10 mg tablet 10 mg PO QAM 07/11/21 03/28/24 03/27/24 ferrous sulfate 143 mg PO .Q OTHER DAY 07/11/21 03/28/24 03/27/24 hydralazine 10 mg tablet 20 mg PO BID 07/11/21 03/28/24 03/27/24 metoprolol succinate 25 mg 25 mg PO PM 07/11/21 03/28/24 03/27/24 tablet,extended release 24 hr valsartan 320 mg tablet 320 mg PO QAM 07/11/21 03/28/24 03/27/24 CoQ-10 1 cap PO QAM 03/28/24 03/28/24 03/27/24 aspirin 81 mg tablet,delayed 81 mg PO QAM 03/28/24 03/28/24 03/27/24 release furosemide 20 mg tablet 20 mg PO .3X WEEKLY 03/28/24 03/28/24 03/26/24 pravastatin 20 mg tablet 20 mg PO QAM 03/28/24 03/28/24 03/27/24 Past Medical History Medical History (Updated 03/28/24 @ 11:25 by Rene Segal MD) Encounter for pre-operative examination History of CHF (congestive heart failure) Hyperlipidemia Hypertension History of TAVR, hypertension, hyperlipidemia Follow[place] [facility] [place]. Had history of NYHA class I-II symptoms which resolved following TAVR Cath 06/2021: Minimal CAD, normal right-sided pressures EKG sinus without ischemic changes at baseline Last echo 10/2021: EF 60 to 65%, well-seated bioprosthetic AVR Past Surgical History Surgical History S/P TAVR (transcatheter aortic valve replacement) Social History Smoking Status: Former smoker tobacco type: cigarettes Do You Dip or Chew Tobacco: No Hx Alcohol Use: No alcohol intake frequency: holidays/special occasions only Hx Substance Use: No substance use type: does not use Physical Exam Vital Signs Last Vital Signs Temp 36.5 C 03/28/24 08:22 Pulse 65 03/28/24 09:36 Resp 13 03/28/24 09:36 BP 151/73 H 03/28/24 09:49 Pulse Ox 99 03/28/24 09:36 O2 Del Method Room Air 03/28/24 08:22 Testing Laboratory Results 03/28/24 08:27 03/28/24 08:27 PT 10.6 Seconds (9.0-12.0) 03/28/24 08:27 INR 1.0 (0.9-1.1) 03/28/24 08:27 APTT 25 Seconds (21-31) 03/28/24 08:27 Urine Color Yellow 03/28/24 09:05 Urine Appearance Clear (Clear) 03/28/24 09:05 Urine pH 5.5 (4.5-7.5) 03/28/24 09:05 Ur Specific [place] 1.020 (1.000-1.030) 03/28/24 09:05 Urine Protein Negative (Negative) 03/28/24 09:05 Urine Glucose (UA) Negative (Negative) 03/28/24 09:05 Urine Ketones Negative (Negative) 03/28/24 09:05 Urine Nitrite Negative (Negative) 03/28/24 09:05 Ur Leukocyte Esterase Negative (Negative) 03/28/24 09:05 Blood Type O Positive 03/28/24 10:01 Antibody Screen NEGATIVE 03/28/24 10:01 Electrocardiogram Date: 03/28/24 Findings: + SB @ (57) sinus janes. possible anterior infarct (cite on or before 08/02/23).
[2024-03-28] MEDS ORDERED: MAGNESIUM HYDROXIDE SUSP 30 ML UDC PO PRN (11:32)
[2024-03-28] MEDS ORDERED: PROMETHAZINE HCL 6.25 MG in SODIUM CHLORIDE 0.9% 50 ML IV PRN (11:32)
[2024-03-28] MEDS ORDERED: ePHEDrine sulfate 50 MG/ML AMP IV PRN (11:32)
[2024-03-28] MEDS ORDERED: ATROPINE SULFATE 0.1 MG/ML 10ML SYR IV PRN (11:32)
[2024-03-28] MEDS ORDERED: ACETAMINOPHEN 1,000 MG/100 ML VIAL IV PRN (11:32)
[2024-03-28] MEDS ORDERED: NALOXONE HCL 0.4 MG/1 ML VIAL/CARP IV PRN (11:32)
[2024-03-28] MEDS ORDERED: bisacodyL 10 MG SUPP PR PRN (11:32)
[2024-03-28] MEDS ORDERED: ePHEDrine sulfate 50 MG/5 ML SYR ONE (11:57)
[2024-03-28] MEDS: LACTATED RINGER'S 1,000 ML IV SCH (12:07)
[2024-03-28] MEDS ORDERED: fentaNYL citrate PF 100 MCG/2 ML VIAL ONE (12:13)
--- NOTE | 2024-03-28 12:49 | History & Physical Bridge Note ---
Date of Service March 28, 2024 History & Physical Bridge Note I have examined the patient, reviewed the History & Physical and in the interval since the performance of the History & Physical I have noted the following changes of clinical significance: no changes noted
[2024-03-28] MEDS: TRANEXAMIC ACID / 0.7% NACL 1,000 MG/100 ML BAG IV ONE ×2 (12:58→13:53)
[2024-03-28] MEDS: ceFAZolin 2,000 MG/15 ML IV PUSH IV ONE (12:59)
[2024-03-28] MEDS: TRANEXAMIC ACID / 0.7% NACL 1000MG/100ML BAG IV ONE (13:00)
[2024-03-28] MEDS: ceFAZolin 2000MG 2,000 MG/15 ML SYR IV ONE (13:00)
[2024-03-28] MEDS ORDERED: ALBUTEROL HFA 8 GM INHALER INH ONE (13:32)
[2024-03-28] MEDS ORDERED: PHENYLEPHRINE 100MCG/ML 5ML SYR ONE (13:32)
[2024-03-28] MEDS ORDERED: DEXAMETHASONE SOD INJ 4 MG/ML VIAL ONE ×3 (13:36→13:37)
[2024-03-28] MEDS ORDERED: SUGAMMADEX SODIUM 200 MG/2 ML VIAL IV ONE (13:52)
[2024-03-28] MEDS: BUPIVACAINE/EPINEPHRINE 0.25% 1:200,000 30 ML VIAL ONE (14:01)
[2024-03-28] MEDS: fentaNYL citrate PF 100 MCG/2 ML VIAL IV PRN (14:25)
--- NOTE | 2024-03-28 14:37 | Fluoroscopy Report ---
FL hip RT 2-3V CLINICAL HISTORY: RT TROCH NAIL COMPARISON STUDY: None FLUOROSCOPY TIME: 62 seconds FLUOROSCOPY IMAGES: 5 EXPOSURE DOSE: 15 mGy FINDINGS: Fluoroscopy was provided for placement of short right femoral gamma nail for fracture. IMPRESSION: Intraoperative fluoroscopy. ACT 112: Negative or not required by law. Electronically signed by: Onofre Molina M.D. 03/28/2024 2:36 PM
--- NOTE | 2024-03-28 14:41 | Electrocardiogram Report ---
Test Reason : Blood Pressure : */* mmHG Vent. Rate : 57 BPM Atrial Rate : 57 BPM P-R Int : 176 ms QRS Dur : 90 ms QT Int : 444 ms P-R-T Axes : 70 66 85 degrees QTcB Int : 432 ms Sinus bradycardia Poor R wave progression, consider anterior PR vs. lead placement vs. LVH Abnormal ECG When compared with ECG of 02-Aug-2023 13:56, Nonspecific T wave abnormality no longer evident in Inferior leads Nonspecific T wave abnormality no longer evident in Anterolateral leads Confirmed by Aguilar Henderson ([id number]) on 03/28/2024 2:40:57 PM Referred By: Confirmed By: Aguilar Henderson
--- NOTE | 2024-03-28 14:42 | Anesthesiology Progress Note ---
Date of Service March 28, 2024 Anesthesia Post Procedure Vital Signs Vital Signs: Temp Pulse Pulse Pulse Resp BP BP 03/28/24 14:35 72 14 149/63 H 03/28/24 14:25 66 15 156/58 H 03/28/24 14:19 36.6 C 70 17 149/74 H 03/28/24 11:51 36.9 C 64 20 148/61 H 03/28/24 11:32 36.5 C 56 L 18 145/65 H 03/28/24 09:49 151/73 H 03/28/24 09:36 65 13 03/28/24 09:24 63 19 03/28/24 09:18 61 12 03/28/24 09:00 59 L 18 03/28/24 08:51 44 L 14 03/28/24 08:42 56 L 03/28/24 08:30 59 L 15 03/28/24 08:25 52 L 03/28/24 08:22 36.5 C 54 L 14 177/84 H 03/28/24 08:21 177/84 H Pulse Ox O2 Del Method O2 Flow Rate 03/28/24 14:35 98 Oxymask 5 03/28/24 14:25 100 Oxymask 5 03/28/24 14:19 97 Oxymask 5 03/28/24 11:51 97 Room Air 03/28/24 11:32 95 Nasal Cannula 1 03/28/24 09:49 03/28/24 09:36 99 03/28/24 09:24 91 03/28/24 09:18 96 03/28/24 09:00 96 03/28/24 08:51 95 03/28/24 08:42 93 03/28/24 08:30 98 03/28/24 08:25 03/28/24 08:22 97 Room Air 03/28/24 08:21 Pain Intensity Right Leg: Pain Intensity: 4 Right Hip: Pain Intensity: 5 Transfer of Care Handoff Completed per policy Notes Mental Status: alert / awake / arousable and participated in evaluation Patient Amnestic to Procedure: Yes Nausea / Vomiting: adequately controlled Pain: adequately controlled Airway Patency, RR, SpO2: stable & adequate BP & HR: stable & adequate Hydration State: stable & adequate Anesthetic Complications: no major complications apparent and Pt Satisfied with anesthetic care
[2024-03-28] MEDS: HYDROmorphone INJ 1 MG/ML SYRINGE IV PRN ×2 (14:49→23:49)
[2024-03-28] MEDS: HYDROmorphone INJ 2 MG/ML SYR/VIAL IV PRN (15:14)
[2024-03-28] MEDS: ONDANSETRON INJ 2 MG/ML 2 ML VIAL IV PRN (15:49)
[2024-03-28] MEDS: NSS + 20MEQ KCL 20 MEQ/1,000 ML BAG IV SCH (16:09)
--- NOTE | 2024-03-28 16:54 | XRay Report ---
EXAM: XR hip RT min 2V CLINICAL HISTORY: S/P Insertion of right troch nail. TECHNIQUE: X-ray images of the right hip joint were obtained in anteroposterior (AP) and lateral projections. COMPARISON: No prior studies available for comparison. FINDINGS: Status post internal fixation of right femoral neck comminuted fracture with Troch nail without evidence of prosthesis loosening or breaking Hip joint is normal with preserved joint spaces. No evidence of hip dislocation, subluxation, or significant degenerative changes. No osteophytes, joint space narrowing, or sclerosis noted. Soft Tissues: Visualized soft tissues are normal and unremarkable. No soft tissue swelling, calcifications, or masses. Additional Findings: No other significant abnormalities noted. IMPRESSION: Status post internal fixation of right femoral neck comminuted fracture with Troch nail without evidence of prothesis loosening or breaking Disclaimer: A subtle bone abnormality or fracture may not be readily apparent on X-rays, thus clinical correlation and further imaging including follow-up CT, MRI, or follow-up X-rays are advised as needed. Electronically signed by Radha Hernandez 03-28-2024 4:53 PM
[2024-03-28] MEDS: PROCHLORPERAZINE 5 MG in SYRINGE 4 ML IV PRN (18:07)
[2024-03-28] MEDS: HYDROmorphone INJ 0.5 MG/0.5 ML SYR IV PRN (18:45)
[2024-03-28] MEDS: ceFAZolin 1000MG 1,000 MG/7.5 ML SYR IV SCH (20:34)
[2024-03-28] MEDS: METOPROLOL SUCC 25MG EXT REL TAB PO SCH (20:34)
[2024-03-28] MEDS: FAMOTIDINE 20MG IV PUSH 20 MG/5 ML SYR IV SCH (20:34)
[2024-03-28] MEDS: hydrALAZINE 10 MG TAB PO SCH (20:34)
[2024-03-28] MEDS: APIXABAN 2.5 MG TAB PO SCH (20:35)
[2024-03-28] MEDS: ACETAMINOPHEN 500 MG TAB PO PRN (21:34)
[2024-03-29 07:28] LABS: BUN Creatinine Ratio 45.3 (10-20); Calcium 8.2 mg/dl (8.6-10.3); Creatinine Clr Calc Pharmacy 60.6 ml/min; Potassium 4.7 mmol/L (3.5-5.1)
--- NOTE | 2024-03-29 07:31 | Orthopedic Progress Note ---
Date of Service March 29, 2024 Assessment & Plan (1) Closed right hip fracture: Overall she is doing fairly well. She is having some soreness in her hip which is to be expected. She will be seen by physical therapy today for ambulation and range of motion exercises. She can be weightbearing as tolerated on the right hip. She is on Eliquis 2.5 mg twice a day for 6 weeks for DVT prophylaxis. She is orthopedically stable for discharge when medically ready. Orthopedic discharge instructions were placed in the discharge summary. Subjective Chelle was seen and examined at bedside this morning. Overall she is doing fairly well. She has some soreness in her hip. She has not put any weight on it yet. She has no new complaints... Review of Systems All systems reviewed & are unremarkable except as noted in HPI & below. Physical Exam On physical exam of the right hip, the dressing is clean and dry. Her leg is out full extension. She has active dorsiflexion plantarflexion of her right ankle.. Results & Data Results & Data Laboratory Results . Diagnostic Findings . PG Care Time/CCT Total # of Minutes Spent Total Time Spent with Patient: Total time spent is greater than 50% in coordination of care (as documented) at patient's floor/unit and/or counseling patient: Coding Level of Care Code 75141 Post Operative Follow-Up Diagnoses Closed right hip fracture S72.001A Encounter type: initial encounter (1) Closed right hip fracture Encounter type: initial encounter Qualified Code(s): S72.001A - Fracture of unspecified part of neck of right femur, initial encounter for closed fracture
[2024-03-29] MEDS: amLODIPine BESYLATE 5 MG TAB PO SCH (07:55)
[2024-03-29] MEDS: ATORVASTATIN 10 MG TAB PO SCH (07:56)
[2024-03-29] MEDS: MULTIVITAMIN TAB PO SCH (07:57)
[2024-03-29 09:17] LABS: Hematocrit (blood only) 26.2 % (37.0-47.0); Hemoglobin 8.5 g/dl (12.0-16.0); Mean Corpuscular Hemoglobin 18.8 pg (25.0-34.0); Mean Corpuscular Hgb Conc 32.4 g/dL (32.0-36.0); Platelet Count 226 K/uL (130-400); RDW Standard Deviation 31.8 fL (36.4-46.3); Red Blood Count 4.52 M/uL (4.20-5.40)
[2024-03-29 10:12] LABS: Eosinophils # (auto) 0.01 K/uL (0.00-0.50); Eosinophils % (auto) 0.1 %; Immature Granulocytes # (auto) 0.05 K/uL (0.01-0.20); Immature Granulocytes % (auto) 0.5 %; Lymphocytes # (auto) 1.16 K/uL (1.20-3.40); Lymphocytes % (auto) 10.5 %; Microcytosis Present; Monocytes # (auto) 1.81 K/uL (0.11-0.59); Monocytes % (auto) 16.3 %; Neutrophils # (auto) 8.07 K/uL (1.40-6.50); Neutrophils % (auto) 72.6 %
[2024-03-29] MEDS: oxyCODONE HCL IR 5 MG TAB (IMMEDIATE RELEASE) PO PRN (11:26)
--- NOTE | 2024-03-29 11:38 | Hospitalist Progress Note ---
Date of Service March 29, 2024 Assessment & Plan (1) Closed right hip fracture: Plan: Right intertrochanteric hip fracture Following mechanical fall, slipped on ice. No head strike. Is not on blood thinners. Is on baby aspirin daily last taken 03/27/2024 X-ray hip/pelvis/Femur: Intertrochanteric right hip fracture - s/p intertrochanteric nail - Apixaban 2.5mg PO BID for DVT PPx x1 month - +pain today on ambulation. Reassuranc eprovided. Neurovascularly intact. Continue APAP, oxycodone, hydromorphine multimodal pain control - PT/OT following, recommend acute rehab. Placement pending - Ok to discharge once rehab available and pain is adequately controlled on oral regiment - Remove villarreal --> bladder scan PRN History of TAVR, hypertension, hyperlipidemia Follow-up with [facility] [place] cardiology. Had history of NYHA class I-II symptoms which resolved following TAVR Cath 06/2021: Minimal CAD, normal right-sided pressures EKG sinus without ischemic changes at baseline Last echo 10/2021: EF 60 to 65%, well-seated bioprosthetic AVR Continue amlodipine Continue atorvastatin Valsartan resumed Continue metoprolol 25 mg at bedtime DVT prophylaxis: eliquis 2.5mg Diet: CODE STATUS: DNR/DNI. Discussed with patient at bedside Disposition: MSO (2) Hypertension: (3) Hyperlipidemia: (4) S/P TAVR (transcatheter aortic valve replacement): (5) History of CHF (congestive heart failure): Admission and Anticipated Discharge Date Admission Date: March 28, 2024 Subjective Ambulated 3x postop, although unsteady and with ongoing pain at her hip. no fevers, chills. Villarreal remains in place. Pt concerned about pain and rehab. No other complaints Physical Exam Physical Exam: General: A&Ox3. NAD. Cooperative. HEENT: Atraumatic, normocephalic. Vision and hearing grossly intact Pulm: Symmetrical chest rise. No increased work of breathing. No respiratory distress. Abdominal: nondistended, soft. BS present. Ext/: PT pulses intact and symmetrical, Bilat foot sensation/strength is intact. surgical dressing C/D/I. Results & Data Results & Data Vital Signs (Past 12 Hours) Vital Signs Temp Pulse Resp BP Pulse Ox O2 Del Method 03/29/24 07:13 36.7 C 76 16 156/64 H 94 Room Air 03/29/24 03:08 36.9 C 76 16 129/67 91 Room Air PG Care Time/CCT Total # of Minutes Spent Total Time Spent with Patient: Total time spent is greater than 50% in coordination of care (as documented) at patient's floor/unit and/or counseling patient: Coding Level of Care Code 31173 SUB INP/OBS CARE 2/35MIN Diagnoses Closed right hip fracture S72.001A Encounter type: initial encounter Hypertension I10 Hypertension type: unspecified Hyperlipidemia E78.5 S/P TAVR (transcatheter aortic valve replacement) Z95.2 History of CHF (congestive heart failure) Z86.79 (1) Closed right hip fracture Encounter type: initial encounter Qualified Code(s): S72.001A - Fracture of unspecified part of neck of right femur, initial encounter for closed fracture (2) Hypertension Hypertension type: unspecified Qualified Code(s): I10 - Essential (primary) hypertension
[2024-03-29] MEDS: VALSARTAN 80 MG TAB PO SCH (12:27)
[2024-03-29] MEDS: HYDROmorphone INJ 0.5 MG/0.5 ML SYR IV PRN (19:47)
[2024-03-30 06:41] LABS: Hematocrit (blood only) 24.7 % (37.0-47.0); Mean Corpuscular Hemoglobin 18.8 pg (25.0-34.0); Mean Corpuscular Hgb Conc 32.4 g/dL (32.0-36.0); Mean Corpuscular Volume 58.1 fL (80.0-100.0); Platelet Count 183 K/uL (130-400); RDW Coefficient of Variation 15.9 % (11.5-14.5); RDW Standard Deviation 31.5 fL (36.4-46.3); Red Blood Count 4.25 M/uL (4.20-5.40); White Blood Count 9.14 K/ul (4.8-10.8)
[2024-03-30 07:12] LABS: BUN Creatinine Ratio 39.6 (10-20); Calcium 8.5 mg/dl (8.6-10.3); Creatinine Clr Calc Pharmacy 85.7 ml/min; Potassium 4.1 mmol/L (3.5-5.1)
[2024-03-30 08:17] LABS: Basophils # (auto) 0.01 K/uL (0.00-0.20); Basophils % (auto) 0.1 %; Eosinophils # (auto) 0.01 K/uL (0.00-0.50); Eosinophils % (auto) 0.1 %; Immature Granulocytes # (auto) 0.06 K/uL (0.01-0.20); Immature Granulocytes % (auto) 0.7 %; Lymphocytes # (auto) 0.96 K/uL (1.20-3.40); Lymphocytes % (auto) 10.5 %; Microcytosis Present; Monocytes # (auto) 1.71 K/uL (0.11-0.59); Monocytes % (auto) 18.7 %; Neutrophils # (auto) 6.39 K/uL (1.40-6.50); Neutrophils % (auto) 69.9 %; Ovalocytes 1+; Target Cells 1+
--- NOTE | 2024-03-30 11:38 | Hospitalist Progress Note ---
Date of Service March 30, 2024 Assessment & Plan (1) Closed right hip fracture: Plan: Right intertrochanteric hip fracture Following mechanical fall, slipped on ice. No head strike. Is not on blood thinners. Is on baby aspirin daily last taken 03/27/2024 X-ray hip/pelvis/Femur: Intertrochanteric right hip fracture - s/p intertrochanteric nail - Apixaban 2.5mg PO BID for DVT PPx x1 month - Continue APAP, oxycodone, hydromorphine multimodal pain control - PT/OT following, recommend acute rehab. Placement pending. Referrals to [facility] have been placed Urinary retention Following Archer removal patient has had multiple episodes of urinary retention. Voiding trials x 2 with PVRs greater than 400 and requiring straight cath. Archer replaced, can follow-up for repeat voiding trial either rehab or with outpatient urology appointment. History of TAVR, hypertension, hyperlipidemia Follow[place]up with [facility] [place]. Had history of NYHA class I-II symptoms which resolved following TAVR Cath 06/2021: Minimal CAD, normal right-sided pressures EKG sinus without ischemic changes at baseline Last echo 10/2021: EF 60 to 65%, well-seated bioprosthetic AVR Continue amlodipine Continue atorvastatin Valsartan resumed Continue metoprolol 25 mg at bedtime DVT prophylaxis: eliquis 2.5mg Diet: CODE STATUS: DNR/DNI. Discussed with patient at bedside Disposition: MSO (2) Hypertension: (3) Hyperlipidemia: (4) S/P TAVR (transcatheter aortic valve replacement): (5) History of CHF (congestive heart failure): Admission and Anticipated Discharge Date Admission Date: March 28, 2024 Subjective Doing better today. Some with pain but more well-controlled than yesterday has been able to ambulate. "Feels like I have had a gym routine today ". No fevers chills or sweats. No numbness/tingling or strength loss. Pending placement [facility] referrals have not placed. Per nursing staff patient has had urinary retention postop. After Archer was removed she has had multiple episodes of retention, 2 straight caths, and PVR greater than 400. Given this we will place Archer catheter. Will need either voiding trial at rehab or outpatient urology follow-up, both will be arranged Physical Exam Physical Exam: General: A&Ox3. NAD. Cooperative. HEENT: Atraumatic, normocephalic. Vision and hearing grossly intact Pulm: Symmetrical chest rise. No increased work of breathing. No respiratory distress. Abdominal: nondistended, soft. BS present. Ext/: PT pulses intact and symmetrical, Bilat foot sensation/strength is intact. surgical dressing C/D/I. Results & Data Results & Data Vital Signs (Past 12 Hours) Vital Signs Temp Pulse Resp BP Pulse Ox O2 Del Method 03/30/24 09:15 36.4 C L 80 16 126/74 97 Room Air 03/30/24 07:09 37.3 C 81 14 157/68 H 92 Room Air PG Care Time/CCT Total # of Minutes Spent Total Time Spent with Patient: Total time spent is greater than 50% in coordination of care (as documented) at patient's floor/unit and/or counseling patient: Coding Level of Care Code 79008 SUB INP/OBS CARE 2/35MIN Diagnoses Closed right hip fracture S72.001A Encounter type: initial encounter Hypertension I10 Hypertension type: unspecified Hyperlipidemia E78.5 S/P TAVR (transcatheter aortic valve replacement) Z95.2 History of CHF (congestive heart failure) Z86.79 (1) Closed right hip fracture Encounter type: initial encounter Qualified Code(s): S72.001A - Fracture of unspecified part of neck of right femur, initial encounter for closed fracture (2) Hypertension Hypertension type: unspecified Qualified Code(s): I10 - Essential (primary) hypertension
--- NOTE | 2024-03-31 07:20 | Orthopedic Progress Note ---
Date of Service March 31, 2024 Assessment & Plan (1) Closed right hip fracture: POD 3 from right hip TFN. Continue PT/OT. wbat. I reassured her that she can continue to try to weight bear on the right leg. Dressing change today with nursing. She is on eliquis 2.5mg BID. Discharge planning: appears referral to [facility] has been placed. Should follow up with orthopedics 2-3 weeks post op Subjective . 74 year old patient POD 3 from right hip TFN. She says she still can't weight bear on the right leg due to pain. No other complaints at this time. Review of Systems All systems reviewed & are unremarkable except as noted in HPI & below. Physical Exam . alert. NAD. VSS Right leg: + swelling of the thigh, compartments are soft. Dressing clean, dry, intact. Able to dorsiflex and plantarflex. NVI Results & Data Results & Data Laboratory Results . Diagnostic Findings . PG Care Time/CCT Total # of Minutes Spent Total Time Spent with Patient: Total time spent is greater than 50% in coordination of care (as documented) at patient's floor/unit and/or counseling patient: Coding Level of Care Code 73556 Post Operative Follow-Up Diagnoses Closed right hip fracture S72.001A Encounter type: initial encounter (1) Closed right hip fracture Encounter type: initial encounter Qualified Code(s): S72.001A - Fracture of unspecified part of neck of right femur, initial encounter for closed fracture
[2024-03-31 07:49] LABS: BUN Creatinine Ratio 33.3 (10-20); Calcium 8.3 mg/dl (8.6-10.3); Creatinine Clr Calc Pharmacy 84.2 ml/min
[2024-03-31 08:03] LABS: Hematocrit (blood only) 23.1 % (37.0-47.0); Hemoglobin 7.4 g/dl (12.0-16.0); Mean Corpuscular Hemoglobin 18.4 pg (25.0-34.0); Mean Corpuscular Volume 57.3 fL (80.0-100.0); Platelet Count 176 K/uL (130-400); RDW Coefficient of Variation 15.9 % (11.5-14.5); RDW Standard Deviation 31.8 fL (36.4-46.3); Red Blood Count 4.03 M/uL (4.20-5.40); White Blood Count 7.32 K/ul (4.8-10.8)
[2024-03-31 08:05] LABS: Basophils # (auto) 0.02 K/uL (0.00-0.20); Basophils % (auto) 0.3 %; Eosinophils # (auto) 0.05 K/uL (0.00-0.50); Eosinophils % (auto) 0.7 %; Hypochromasia Present; Immature Granulocytes # (auto) 0.02 K/uL (0.01-0.20); Immature Granulocytes % (auto) 0.3 %; Lymphocytes # (auto) 1.19 K/uL (1.20-3.40); Lymphocytes % (auto) 16.3 %; Microcytosis Present; Monocytes # (auto) 1.32 K/uL (0.11-0.59); Neutrophils # (auto) 4.72 K/uL (1.40-6.50); Neutrophils % (auto) 64.4 %; Polychromasia 1+; Target Cells 1+; Tear Drop Cells 1+
[2024-03-31] MEDS: ONDANSETRON INJ 2 MG/ML 2 ML VIAL IV PRN (08:19)
--- NOTE | 2024-03-31 09:44 | Discharge Summary ---
Discharge Summary Date of Service March 31, 2024 Principal Dx & Hospital Course #1 = Principal Diagnosis (1) Closed right hip fracture: 74-year-old female with a mechanical fall after slipping on ice in a intertrochanteric right hip fracture s/p operative repair. Doing well and discharged to complete 30 days of DVT prophylaxis with Eliquis 2.5 mg p.o. twice daily. Discharged to rehab with multimodal pain control and a short course of oxycodone. Course was complicated by postoperative urinary retention requiring multiple straight caths after Archer removal. Archer was replaced, may have a voiding trial either rehab or with outpatient follow-up which was being scheduled Right intertrochanteric hip fracture Following mechanical fall, slipped on ice. No head strike. Is not on blood thinners. Is on baby aspirin daily last taken 03/27/2024 X-ray hip/pelvis/Femur: Intertrochanteric right hip fracture - s/p intertrochanteric nail - Apixaban 2.5mg PO BID for DVT PPx x1 month - Continue APAP, oxycodone Multimodal pain control Urinary retention Following Archer removal patient has had multiple episodes of urinary retention. Voiding trials x 2 with PVRs greater than 400 and requiring straight cath. Archer replaced, can follow-up for repeat voiding trial either rehab or with outpatient urology appointment. History of TAVR, hypertension, hyperlipidemia Follow-up with [facility] [place] [place] cardiology. Had history of NYHA class I-II symptoms which resolved following TAVR Cath 06/2021: Minimal CAD, normal right-sided pressures EKG sinus without ischemic changes at baseline Last echo 10/2021: EF 60 to 65%, well-seated bioprosthetic AVR Continue amlodipine Continue atorvastatin Valsartan resumed Continue metoprolol 25 mg at bedtime (2) Hypertension: (3) Hyperlipidemia: (4) S/P TAVR (transcatheter aortic valve replacement): (5) History of CHF (congestive heart failure): Admission HPI Per Admitting Provider Chelle is a 74-year-old female with a past medical history of hyperlipidemia, hypertension presents to the ER after falling on ice with a RIGHT femoral hip fracture She was seen at the bedside. She reports that she is in usual state health and was walking out to take out the trash when she fell on black ice that she did not realize was there and immediately fell to her right hip with inability to bear weight and pain at the anterior and medial side of her hip. She did not have any lightheadedness or dizziness that caused her to fall. She did not hit her head or lose consciousness. She has not been sick recently and denies fev er, chills, sweats, shortness of breath, difficulty breathing, nausea/vomiting/diarrhea/constipation/melena/hematochezia. She does note she has had a little bit of intermittent nausea with aspirin recently but none currently. She is not allergic to any medications, she did not take her medications before being brought in this morning. She does have a history of heart failure with no symptoms and generally doing well on Sunday Lasix on which overall has resolved since she had a TAVR 2 years ago. Cath at that time did not show any evidence of ischemic disease. Otherwise she has normally well-controlled hypertension and hyperlipidemia, denies other medical problems. No medication allergies. Medical History: Reviewed Medications: Reviewed Surgical History: Reviewed Family history: Reviewed Allergies: Reviewed Social History: No tobacco use, no etoh use Code Status: DNR/DNI Discharge Exam General: A&Ox3. NAD. Cooperative. HEENT: Atraumatic, normocephalic. Vision and hearing grossly intact Pulm: Symmetrical chest rise. No increased work of breathing. No respiratory distress. Abdominal: nondistended, soft. BS present. Ext/: PT pulses intact and symmetrical, Bilat foot sensation/strength is intact. surgical dressing C/D/I. Discharge Plan Discharge Items Patient Disposition: Transfer Inpatient Rehab Fac Reason For Visit: R HIP FXR Discharge Diagnosis: Right hip fracture Activity: Resume your previous activity Non-emergency contact: Primary Care Provider and Urologist Call non-emergency contact if: you have any medication questions and your symptoms worsen Follow-up/Referrals: Eliezer Alvarado MD [Physician] - (Urinary Rentention outpt f/u) Abhay Agee MD [Physician] - Megha Warren MD [Primary Care Provider] - Diet: Regular Addtl Attending Provider Instructions: You are seen in the hospital for right hip fracture. You have been discharged to rehab. Orthopedic recommendations have been made as below. Postoperatively you did have difficulty voiding with urinary retention after Archer was removed. Your urinary retention continued after 2 straight caths, a Archer was replaced. He may have a repeat Archer removal and voiding trial at rehab, and if unsuccessful then can keep the urology appointment being scheduled as above. You have been prescribed a low-dose of a blood thinner medication, Eliquis. Please take Eliquis 2.5 mg by mouth twice daily to help prevent blood clots. For any small cuts please apply firm direct pressure for 10 minutes without checking the wound. For any larger wound, or bleeding that does not stop, or put red blood in the bowels/bloody bowel movements/black bowel movements or other concerning bleeding please seek medical reattention. You have been prescribed a short course of oxycodone to help minimize pain with physical therapy and ambulation. Please use Tylenol up to 1000 mg every 8 hours (do not exceed 4 g of Tylenol in any 24-hour period) for pain prior to using this medication. You may use oxycodone 5mg up to every 8 hours as needed for pain. Oxycodone is a narcotic medication. Do not drive on this medication. This medication can cause dependence and should be used only as needed for a short period of time. If you develop any new or worsening symptoms including fever, chills, sweats, chest pain, chest pressure, difficulty breathing, uncontrolled nausea/vomiting, rash, wheezing, passing out or nearly passing out, bleeding, black/bloody bowel movements, or other new or concerning symptoms please call your primary care physician, or call 911 for re-evaluation in the emergency department if you are very concerned. Addtl Core Loader Provider Instructions: ORTHOPEDIC INSTRUCTIONS Hip Fracture Activity and Therapy Recommendations: 1. You were shown a series of exercises in the hospital. Do these exercises three times each day if you are able. 2. Get up and walk several times each day if you are capable. Make sure you have assistance is needed. For the first four weeks, try not to stand or walk for more than one hour at a time. If you do stand or walk for more than one hour, you will not hurt anything, but your leg will likely swell. 3. As you feel comfortable, you may change from the walker or crutches to a cane and then to independent walking if you are able. Please be safe. Medications: 1. Narcotic You will likely be sent from the hospital with the narcotic pain medication that worked best throughout your stay. 2. Eliquis -take Eliquis 2.5 mg twice a day for 6 weeks after surgery. 3. Other medications may be given for specific circumstances. If you have any questions, please call the office at [phone]. 4. Resume previous home medications unless otherwise instructed TEDs/Elastic Stockings: The white elastic stockings help limit swelling and prevent blood clots from forming in your legs. The more you wear them, the more they work. Wear them for six weeks. Dressing Care: [place] can be open to air as long as the incisions are not draining. If the incisions are draining or if the jesus are getting caught on your clothes then please cover the jesus with dry gauze. Change the dressings as necessary to keep the incision as dry as possible Showering: You may shower 5 days from the day of surgery as long as the incisions are not draining. Do not soak the incision. Let soapy water run over the jesus and pat them dry. Diet: You may resume your previous diet. Things To Watch For: 1. Drainage from the incision site that occurs more than one week after your surgery. 2. Increased redness at the incision site. 3. Fever above 102 degrees Fahrenheit. 4. Unusual chest pain or shortness of breath. 5. Call [facility] at with any of the above problems Follow-Up Visit: Follow-up with Dr. Cottrell's office 2-3 weeks after your day of surgery. We will remove your jesus and answer any questions. Please call the office to set up an appointment for a time that works for you. Pending Studies at Discharge: No Stand-Alone Forms: My [facility] Skilled Items Patient informed of condition?: Yes DNR: Yes Discharge Level of Care: Acute rehab Communicable Disease: No Discharge Prognosis: Stable Lines: None Urinary Catheter: Yes Medications and DC Order Prescriptions: New Eliquis 2.5 mg Tablet 2.5 mg PO BID Qty: 60 0RF Continued omega-3 fatty acids Capsule 1,250 mg PO .Q OTHER DAY multivitamin Tablet 1 tab PO QAM calcium carbonate-vitamin D3 600 mg(1,500mg) -200 unit Tablet 1 tab PO QAM hydralazine 10 mg Tablet 20 mg PO BID amlodipine 10 mg Tablet 10 mg PO QAM valsartan 320 mg Tablet 320 mg PO QAM metoprolol succinate 25 mg Tablet Extended Release 24 Hr 25 mg PO PM ferrous sulfate 47.5 mg iron Tablet Extended Release 143 mg PO .Q OTHER DAY aspirin [Aspir-81] 81 mg Tablet,Delayed Release (Dr/Ec) 81 mg PO QAM pravastatin 20 mg tablet 20 mg PO QAM furosemide 20 mg tablet 20 mg PO .3X WEEKLY Rx Instructions: ,,sunday CoQ-10 1 cap PO QAM Rx Instructions: otc unknown dose Admission Data Admit Date/Time: 03/28/24 09:45 Attending Provider: Jakob Reis Admit Provider: Jakob Reis Primary Care Provider: Megha Warren Other Providers: Jakob Reis; Abhay Agee; Mena Reyes at [facility] Stay Data Consultations 03/28/24 09:20 Consult Orthopedic Surgery Routine ED Decision to Admit Stat Procedures Performed Operation Date: 03/28/24 10:50 Actual Procedures p Insertion of Right Intetrochanteric Femoral Nail(Right) - Rodo Cottrell DO Diagnostic Imagining Performed 03/28/24 11:35 FL hip RT 2-3V Routine Pending Results Patient Have Any Pending Studies at Discharge: No Discharge Instructions Given to Patient (Per Discharging Provider) You are seen in the hospital for right hip fracture. You have been discharged to rehab. Orthopedic recommendations have been made as below. Postoperatively you did have difficulty voiding with urinary retention after Archer was removed. Your urinary retention continued after 2 straight caths, a Archer was replaced. He may have a repeat Archer removal and voiding trial at rehab, and if unsuccessful then can keep the urology appointment being scheduled as above. You have been prescribed a low-dose of a blood thinner medication, Eliquis. Please take Eliquis 2.5 mg by mouth twice daily to help prevent blood clots. For any small cuts please apply firm direct pressure for 10 minutes without checking the wound. For any larger wound, or bleeding that does not stop, or put red blood in the bowels/bloody bowel movements/black bowel movements or other concerning bleeding please seek medical reattention. You have been prescribed a short course of oxycodone to help minimize pain with physical therapy and ambulation. Please use Tylenol up to 1000 mg every 8 hours (do not exceed 4 g of Tylenol in any 24-hour period) for pain prior to using this medication. You may use oxycodone 5mg up to every 8 hours as needed for pain. Oxycodone is a narcotic medication. Do not drive on this medication. This medication can cause dependence and should be used only as needed for a short period of time. If you develop any new or worsening symptoms including fever, chills, sweats, chest pain, chest pressure, difficulty breathing, uncontrolled nausea/vomiting, rash, wheezing, passing out or nearly passing out, bleeding, black/bloody bowel movements, or other new or concerning symptoms please call your primary care physician, or call 911 for re-evaluation in the emergency department if you are very concerned. Total Time Total Time Spent Total Time Spent (In Minutes): 25 Coding Diagnoses Closed right hip fracture S72.001A Encounter type: initial encounter Hypertension I10 Hypertension type: unspecified Hyperlipidemia E78.5 S/P TAVR (transcatheter aortic valve replacement) Z95.2 History of CHF (congestive heart failure) Z86.79
--- NOTE | 2024-03-31 13:14 | Hospitalist Progress Note ---
Date of Service March 31, 2024 Assessment & Plan (1) Closed right hip fracture: Plan: 74-year-old female with a mechanical fall after slipping on ice in a intertrochanteric right hip fracture s/p operative repair. Doing well and discharged to complete 30 days of DVT prophylaxis with Eliquis 2.5 mg p.o. twice daily. Discharged to rehab with multimodal pain control and a short course of oxycodone. Course was complicated by postoperative urinary retention requiring multiple straight caths after Archer removal. Archer was replaced, may have a voiding trial either rehab or with outpatient follow-up which was being scheduled Patient medically stable for discharge 03/31. Placement is pending. Bed availability estimated midweek. Right intertrochanteric hip fracture Following mechanical fall, slipped on ice. No head strike. Is not on blood thinners. Is on baby aspirin daily last taken 03/27/2024 X-ray hip/pelvis/Femur: Intertrochanteric right hip fracture - s/p intertrochanteric nail - Apixaban 2.5mg PO BID for DVT PPx x1 month - Continue APAP, oxycodone Multimodal pain control Urinary retention Following Archer removal patient has had multiple episodes of urinary retention. Voiding trials x 2 with PVRs greater than 400 and requiring straight cath. Archer replaced, can follow-up for repeat voiding trial either prior to discharge if bed availability takes another day or so, at rehab or with outpatient urology appointment. History of TAVR, hypertension, hyperlipidemia Follow-up with [facility] [place]. Had history of NYHA class I-II symptoms which resolved following TAVR Cath 06/2021: Minimal CAD, normal right-sided pressures EKG sinus without ischemic changes at baseline Last echo 10/2021: EF 60 to 65%, well-seated bioprosthetic AVR Continue amlodipine Continue atorvastatin Valsartan resumed Continue metoprolol 25 mg at bedtime (2) Hypertension: (3) Hyperlipidemia: (4) S/P TAVR (transcatheter aortic valve replacement): (5) History of CHF (congestive heart failure): Admission and Anticipated Discharge Date Admission Date: March 28, 2024 Subjective Doing well bedside. Pain overall improving mobility is improving, still some pain mostly with hip flexion but able to work with PT and nursing staff. Archer remains in place. No fever chills or sweats. No other questions or concerns, is pending placement. This is anticipated to be available midweek Physical Exam Physical Exam: General: A&Ox3. NAD. Cooperative. HEENT: Atraumatic, normocephalic. Vision and hearing grossly intact Pulm: Symmetrical chest rise. No increased work of breathing. No respiratory distress. Abdominal: nondistended, soft. BS present. Ext/: PT pulses intact and symmetrical, Bilat foot sensation/strength is intact. surgical dressing C/D/I. Results & Data Results & Data Vital Signs (Past 12 Hours) Vital Signs Temp Pulse Resp BP Pulse Ox O2 Del Method 03/31/24 09:00 Room Air 03/31/24 07:13 36.7 C 78 16 139/64 93 Room Air PG Care Time/CCT Total # of Minutes Spent Total Time Spent with Patient: Total time spent is greater than 50% in coordination of care (as documented) at patient's floor/unit and/or counseling patient: Coding Level of Care Code 10230 SUB INP/OBS CARE 03/22MIN Diagnoses Closed right hip fracture S72.001A Encounter type: initial encounter Hypertension I10 Hypertension type: unspecified Hyperlipidemia E78.5 S/P TAVR (transcatheter aortic valve replacement) Z95.2 History of CHF (congestive heart failure) Z86.79 (1) Closed right hip fracture Encounter type: initial encounter Qualified Code(s): S72.001A - Fracture of unspecified part of neck of right femur, initial encounter for closed fracture (2) Hypertension Hypertension type: unspecified Qualified Code(s): I10 - Essential (primary) hypertension
[2024-03-31 13:20] LABS: Rouleaux 1+
[2024-03-31 13:58] LABS: Hypochromasia Present
--- NOTE | 2024-03-31 15:19 | Operative Report ---
PG Post Operative Report Pre & Post Diagnosis Operation Date: 03/28/24 10:50 Pre-Op Diagnosis: Right Intertrochanteric Hip Fracture Post-Op Diagnosis: Right Intertrochanteric Hip Fracture I identified the patient and participated in the time-out.: Yes Procedure Operation Date: 03/28/24 10:50 Actual Procedures p Insertion of Right Intetrochanteric Femoral Nail(Right) - Rodo Cottrell DO Surgeon Rodo Cottrell DO Metal Base Blocker Oswaldo Mittal PA-C Estimated Blood Loss 150 Findings Consistent with Post-Op Diagnosis Specimens None Description of Procedure On March 28, 2024 Chelle was brought to the preoperative holding area. The operative extremity identified and signed. She was given a preoperative antibiotic. She was taken back the operating room and given general anesthesia. She was transferred to a hip fracture table. The right leg was brought out to traction. Orthogonal fluoroscopic images were then taken and the fracture was reduced on the fracture table. The right hip was prepped and draped in sterile fashion. A timeout was done. The patient and the operative extremity was properly identified. A longitudinal incision was made just superior to the greater trochanter. Dissection was taken down through the fascia. A guidepin was then placed at the tip of the greater trochanter and advanced down the femoral canal. Appropriate placement was checked on fluoroscopy. A 16 mm opening reamer was used to open the femoral canal. A Synthes 10 mm TFN nail was then impacted in the place. Once I was happy with the placement of the nail, a small lateral incision was made and a cannula was advanced for the helical blade. A guidepin was then placed into the center center position of the femoral head. The lateral cortex was drilled. A helical blade was then drilled. The helical blade was then impacted into place. The fracture was compressed and the helical blade was locked. A single distal locking screw was then placed. Final fluoroscopic images showed good alignment of the fracture. The wounds were then irrigated. The deep fascia was closed with #1 Vicryl. Skin was closed with 2-0 Vicryl and jesus. She was then placed in a soft dressing. She was then extubated and transferred back to a hospital bed. She was taken to the postanesthesia care unit in stable condition. She tolerated the procedure well. Oswaldo Mittal PA-C, was present for the entire procedure. He was critical for patient positioning, prepping, draping, retraction exposure, wound closure and application of sterile dressing. I attest to the content of the Intraoperative Record and any orders documented therein. Any exceptions are noted below.
[2024-04-01 07:35] VITALS: RESP 18
[2024-04-01 10:05] LABS: Hematocrit (blood only) 24.7 % (37.0-47.0); Hemoglobin 7.9 g/dl (12.0-16.0); Mean Corpuscular Hemoglobin 18.5 pg (25.0-34.0); Mean Corpuscular Volume 57.7 fL (80.0-100.0); Platelet Count 225 K/uL (130-400); RDW Coefficient of Variation 15.9 % (11.5-14.5); RDW Standard Deviation 31.8 fL (36.4-46.3); Red Blood Count 4.28 M/uL (4.20-5.40); White Blood Count 5.75 K/ul (4.8-10.8)
[2024-04-01 10:15] LABS: Basophils # (auto) 0.02 K/uL (0.00-0.20); Basophils % (auto) 0.3 %; Eosinophils # (auto) 0.14 K/uL (0.00-0.50); Eosinophils % (auto) 2.4 %; Immature Granulocytes # (auto) 0.02 K/uL (0.01-0.20); Immature Granulocytes % (auto) 0.3 %; Lymphocytes # (auto) 0.93 K/uL (1.20-3.40); Lymphocytes % (auto) 16.2 %; Microcytosis Present; Monocytes # (auto) 0.65 K/uL (0.11-0.59); Monocytes % (auto) 11.3 %; Neutrophils # (auto) 3.99 K/uL (1.40-6.50); Neutrophils % (auto) 69.5 %
[2024-04-01] MEDS ORDERED: Nursing to Pharmacy Communication SCH (11:30)
--- NOTE | 2024-04-01 12:38 | Orthopedic Progress Note ---
Date of Service April 01, 2024 Assessment & Plan (1) Closed right hip fracture: POD 4 from right hip TFN. Continue PT/OT. wbat. I reassured her that she can continue to try to weight bear on the right leg. Dressings can be changed daily or as needed if saturation is appreciated. She is on eliquis 2.5mg BID. Discharge planning: appears referral to [facility] has been placed. Should follow up with orthopedics 2-3 weeks post op Aidan Corbett was seen and evaluated this morning resting comfortably in no apparent distress. She is currently postop day #4 from a right hip TFN. She notes that is still having some difficulties with physical therapy but she feels that she is slowly improving with her pain. She notes her current pain analgesic regimen is doing well. No concerns of her surgical incision site. She has no other concerns today. Review of Systems All systems reviewed & are unremarkable except as noted in HPI & below. Physical Exam .alert. NAD. VSS Right leg: + swelling of the thigh, compartments are soft. Dressing clean, dry, intact. Able to dorsiflex and plantarflex. NVI Results & Data Results & Data Laboratory Results . Diagnostic Findings . PG Care Time/CCT Total # of Minutes Spent Total Time Spent with Patient: Total time spent is greater than 50% in coordination of care (as documented) at patient's floor/unit and/or counseling patient: Coding Level of Care Code 73720 Post Operative Follow-Up Diagnoses Closed right hip fracture S72.001A Encounter type: initial encounter (1) Closed right hip fracture Encounter type: initial encounter Qualified Code(s): S72.001A - Fracture of unspecified part of neck of right femur, initial encounter for closed fracture
--- NOTE | 2024-04-01 20:49 | Hospitalist Progress Note ---
Date of Service April 01, 2024 Assessment & Plan (1) Closed right hip fracture: (2) Hypertension: (3) Hyperlipidemia: (4) S/P TAVR (transcatheter aortic valve replacement): (5) History of CHF (congestive heart failure): Admission and Anticipated Discharge Date Admission Date: March 28, 2024 Subjective "I don't have any pain if I am in bed and I am not moving. If I am standing, the pain in my right hip is a 7 (out of 10 point intensity scale). If I am bearing weight on my right hip and taking one step, the pain in my right hip is an 8 (out of 10 point intensity scale). So, I cannot walk more than 5 feet before the pain gets to be too much for me. It is gonna take a while before I recover completely from this right hip surgery." Review of Systems Constitutional: Negative for antecedent/coincident fevers, chills, diaphoresis, cough, wheeze, sore throat, hemoptysis, chest pains, palpitations, pleurisy, nausea, vomiting, diarrhea, abdominal pain, pelvic pain, hematemesis, hematochezia, melena, hematuria, dysuria, frequency, urgency, headaches, dizziness, lightheadedness, visual changes, hearing changes, weakness, falls, syncope, trauma, travel history, sick contacts, or food/drug ingestions novel or new. All other review of systems are reported as negative by the patient on 04/01/2024. Physical Exam Constitutional: General: comfortable, coherent, cooperative. Wide awake and alert. Not c onfused, lethargic, or obtunded. Patient speaks in complete, fluent, and articulate sentences without pause, interruption, cough, or wheeze. HEENT: NC/AT. EOMI, PERRL. No nystagmus, gaze paresis, anisocoria, miosis, mydriasis, hyphema, chemosis, scleral icterus, conjunctivitis, or pterygium. No otorrhea, no rhinorrhea. No pharyngeal discharge or erythema. Neck: Supple, no stridor, bruit, goiter, or hepatojugular reflux. Jugular venous pressure is estimated to be 8 cm above the sternal angle of Waldemar, which is typically 5 cm above the level of the right atrium. Hence, there is no jugul ar venous distention noted on discharge exam 04/01/2024. Lymphatics: No pre-post auricular, anterior/posterior cervical, supraclavicular/infraclavicular, axillary, epitrochlear, or inguinal adenopathy. Chest: Symmetric rise and fall with respirations. Non-tender to palpation. Heart: RRR, S1 and S2 noted. No S3 or S4 summation gallop noted. No tripartite friction rub. Grade II/ early systolic murmur @ LLSB without radiation to the carotids, axilla, or back, and which remains invariant in regards to the respiratory cycle. Lungs: Clear to auscultation and percussion. No audible expiratory wheeze, egophony, pectoriloquy, increase in tactile fremitus, or flatness/dullness to percussion at the bases. Abdomen: Soft, non-tender, non-distended. No rebound, guarding, Tee's sign, or organomegaly. Bowel sounds auscultated in all 4 quadrants. Extremities: No clubbing, cyanosis, or edema. 2+ pedal pulses bilaterally. Skin: No decubitus ulcer, exanthem, or enanthem. Neurology: Alert and oriented in regards to person, place, time, and situation. DTR+ and symmetric. 5/5 motor strength in all 4 extremities, both proximally and distally. No myoclonus, tremors, or tics. Urology: No villarreal catheter. No urethral discharge. Psychiatry: Appropriate affect. Smiles occasionally. No homicidal/suicidal ideation. Results & Data Results & Data Vital Signs (Past 12 Hours) Vital Signs Temp Pulse Resp BP BP Pulse Ox O2 Del Method 04/01/24 19:40 36.8 C 82 18 149/65 H 97 Room Air 04/01/24 14:58 36.8 C 86 18 118/68 94 Room Air PG Care Time/CCT Total # of Minutes Spent Total Time Spent with Patient: Total time spent is greater than 50% in coordination of care (as documented) at patient's floor/unit and/or counseling patient: Coding Level of Care Code 20876 SUB INP/OBS CARE 2/35MIN Diagnoses Closed right hip fracture S72.001A Encounter type: initial encounter Hypertension I10 Hypertension type: unspecified Hyperlipidemia E78.5 S/P TAVR (transcatheter aortic valve replacement) Z95.2 History of CHF (congestive heart failure) Z86.79 (1) Closed right hip fracture Encounter type: initial encounter Qualified Code(s): S72.001A - Fracture of unspecified part of neck of right femur, initial encounter for closed fracture (2) Hypertension Hypertension type: unspecified Qualified Code(s): I10 - Essential (primary) hypertension
[2024-04-01] MEDS: FAMOTIDINE 20 MG TAB PO SCH (21:34)
[2024-04-02 07:27] VITALS: BP 148/65; TEMP 99.3; O2SAT 96
--- NOTE | 2024-04-02 08:50 | Discharge Summary ---
Discharge Summary Date of Service April 02, 2024 Principal Dx & Hospital Course #1 = Principal Diagnosis (1) Closed right hip fracture: RESOLVED s/p intramedullary nailing of right hip/femur (03/28/2024, 10:50am) to fix acute right intertrochanteric hip fracture with Orthopedic Surgeon Dr. Rodo Cottrell. Continue apixaban 2.5mg PO bid x 6 weeks and follow up with Orthopedic Surgeon Dr. Rodo Cottrell in 2 weeks from 03/28/2024, 10:50am operation. (2) Hypertension: Modestly controlled with discharge BP 148/65 (04/02/2024, 7:25am) on 2 gram Na diet, amlodipine 10mg PO daily, lasix 20mg PO Mon-Wed-Fri, hydralazine 20mg PO bid, metoprolol 25mg PO qhs, and valsartan 320mg PO qam while in [facility]. Patient will continue this same regimen on discharge to [facility] ([place], [place]) on 04/02/2024. (3) Hyperlipidemia: Asymptomatic on pravastatin 20mg PO qam while in [facility]. Patient will continue this same medication on discharge to [facility] ([place], [place]) on 04/02/2024. (4) S/P TAVR (transcatheter aortic valve replacement): s/p TAVR (10/06/2021, [facility], Interventional CARDS Drs. Kenan Stringer and Fern Suarez) to treat severe aortic stenosis. 23mm Abreu Sherrill 3 TAVR was "well seated with expected gradients and no significant aortic insufficiency; compared to 10/07/2021 study, gradients across the AV prosthesis has decreased. DI today 0.55 (as stated on 11/14/2021 TTE , CARDS Dr. Ja Rodriguez). Patient remains asymptomatic with no complaints of angina, syncope, or CHF exacerbation to suggest recurrence of severe aortic stenosis s/p TAVR while patient remained in [facility] from 03/28/2024 to 04/02/2024. Observe. (5) History of CHF (congestive heart failure): cf., 06/21/2021, 12:59pm TTE: 1. LVEF > 70%. 2. No regional wall motion abnormalities. 3. Mild concentric LVH. 4. Grade I diastolic dysfunction of LV. 5. Normal RV size and function. 6. Severely dilated LA. 7. Normal RA. 8. Heavily calcified tricuspid AV. Severe aortic stenosis (LVOT/AV ratio is 0.3; AV mean PG is 45 mm Hg; AVAI 0.45 cm2/m2). 9. Mild AI. 10.Mild MR. 11.Normal PASP 31 mm Hg. 12.Compared to previous 01/28/2020 TTE, degree of aortic stenosis is worse; otherwise, there is no significant change. (as per CARDS Dr. Olvin Cope). Patient did not demonstrate any acute exacerbation of chronic diastolic CHF with preserved LVEF > 70% while in [facility] from 03/28/2024 to 04/02/2024. Patient subsequently received medical management of chronic diastolic CHF with preserved LVEF > 70% by adhering to a 2 gram Na diet, daily weights, strict I/O, amlodipine 10mg PO daily, lasix 20mg PO Mon-Wed-Fri, hydralazine 20mg PO bid, metoprolol 25mg PO qhs, and valsartan 320mg PO qam while in [facility]. Patient will continue this same regimen on discharge to [facility] on 04/02/2024. Discharge Exam Constitutional General: comfortable, coherent, cooperative. Wide awake and alert. Not confused, lethargic, or obtunded. Patient speaks in complete, fluent, and articulate sentences without pause, interruption, cough, or wheeze. HEENT: NC/AT. EOMI, PERRL. No nystagmus, gaze paresis, anisocoria, miosis, mydriasis, hyphema, chemosis, scleral icterus, conjunctivitis, or pterygium. No otorrhea, no rhinorrhea. No pharyngeal discharge or erythema. Neck: Supple, no stridor, bruit, goiter, or hepatojugular reflux. Jugular venous pressure is estimated to be 8 cm above the sternal angle of Waldemar, which is typically 5 cm above the level of the right atrium. Hence, there is no jugular venous distention noted on discharge exam 04/02/2024. Lymphatics: No pre-post auricular, anterior/posterior cervical, supraclav icular/infraclavicular, axillary, epitrochlear, or inguinal adenopathy. Chest: Symmetric rise and fall with respirations. Non-tender to palpation. Heart: RRR, S1 and S2 noted. No S3 or S4 summation gallop noted. No tripartite friction rub. Grade II/ early systolic murmur @ LLSB without radiation to the carotids, axilla, or back, and which remains invariant in regards to the respiratory cycle. Lungs: Clear to auscultation and percussion. No audible expiratory wheeze, egophony, pectoriloquy, increase in tactile fremitus, or flatness/dullness to percussion at the bases. Abdomen: Soft, non-tender, non-distended. No rebound, guarding, Tee's sign, or organomegaly. Bowel sounds auscultated in all 4 quadrants. Extremities: No clubbing, cyanosis, or edema. 2+ pedal pulses bilaterally. Skin: No decubitus ulcer, exanthem, or enanthem. Neurology: Alert and oriented in regards to person, place, time, and situation. DTR+ and symmetric. 5/5 motor strength in all 4 extremities, both proximally and distally. No myoclonus, tremors, or tics. Urology: No villarreal catheter. No urethral discharge. Psychiatry: Appropriate affect. Smiles occasionally. No homicidal/suicidal ideation. Discharge Plan Discharge Items Patient Disposition: Transfer Inpatient Rehab Fac Reason For Visit: R HIP FXR Discharge Diagnosis: Right hip fracture Condition on Discharge: Fair Activity: Resume your previous activity Non-emergency contact: Primary Care Provider and Urologist Call non-emergency contact if: you have any medication questions and your symptoms worsen Follow-up/Referrals: Eliezer Alvarado MD [Physician] - (Urinary Rentention outpt f/u) Abhay Agee MD [Physician] - Megha Warren MD [Primary Care Provider] - Diet: Heart Healthy, Low Fat and Low Sodium (2gm) Addtl Attending Provider Instructions: You are seen in the hospital for right hip fracture. You have been discharged to rehab. Orthopedic recommendations have been made as below. Postoperatively you did have difficulty voiding with urinary retention after Villarreal was removed. Your urinary retention continued after 2 straight caths, a Villarreal was replaced. He may have a repeat Villarreal removal and voiding trial at rehab, and if unsuccessful then can keep the urology appointment being scheduled as above. You have been prescribed a low-dose of a blood thinner medication, Eliquis. Please take Eliquis 2.5 mg by mouth twice daily to help prevent blood clots. For any small cuts please apply firm direct pressure for 10 minutes without checking the wound. For any larger wound, or bleeding that does not stop, or put red blood in the bowels/bloody bowel movements/black bowel movements or other concerning bleeding please seek medical reattention. You have been prescribed a short course of oxycodone to help minimize pain with physical therapy and ambulation. Please use Tylenol up to 1000 mg every 8 hours (do not exceed 4 g of Tylenol in any 24-hour period) for pain prior to using this medication. You may use oxycodone 5mg up to every 8 hours as needed for pain. Oxycodone is a narcotic medication. Do not drive on this medication. This medication can cause dependence and should be used only as needed for a short period of time. If you develop any new or worsening symptoms including fever, chills, sweats, chest pain, chest pressure, difficulty breathing, uncontrolled nausea/vomiting, rash, wheezing, passing out or nearly passing out, bleeding, black/bloody bowel movements, or other new or concerning symptoms please call your primary care physician, or call 911 for re-evaluation in the emergency department if you are very concerned. Addtl Director Trust Provider Instructions: ORTHOPEDIC INSTRUCTIONS Hip Fracture Activity and Therapy Recommendations: 1. You were shown a series of exercises in the hospital. Do these exercises three times each day if you are able. 2. Get up and walk several times each day if you are capable. Make sure you have assistance is needed. For the first four weeks, try not to stand or walk for more than one hour at a time. If you do stand or walk for more than one hour, you will not hurt anything, but your leg will likely swell. 3. As you feel comfortable, you may change from the walker or crutches to a cane and then to independent walking if you are able. Please be safe. Medications: 1. Narcotic You will likely be sent from the hospital with the narcotic pain medication that worked best throughout your stay. 2. Eliquis -take Eliquis 2.5 mg twice a day for 6 weeks after surgery. 3. Other medications may be given for specific circumstances. If you have any questions, please call the office at [phone]. 4. Resume previous home medications unless otherwise instructed TEDs/Elastic Stockings: The white elastic stockings help limit swelling and prevent blood clots from forming in your legs. The more you wear them, the more they work. Wear them for six weeks. Dressing Care: [place] can be open to air as long as the incisions are not draining. If the incisions are draining or if the jesus are getting caught on your clothes then please cover the jesus with dry gauze. Change the dressings as necessary to keep the incision as dry as possible Showering: You may shower 5 days from the day of surgery as long as the incisions are not draining. Do not soak the incision. Let soapy water run over the jesus and pat them dry. Diet: You may resume your previous diet. Things To Watch For: 1. Drainage from the incision site that occurs more than one week after your surgery. 2. Increased redness at the incision site. 3. Fever above 102 degrees Fahrenheit. 4. Unusual chest pain or shortness of breath. 5. Call [facility] at with any of the above problems Follow-Up Visit: Follow-up with Dr. Cottrell's office 2-3 weeks after your day of surgery. We will remove your jesus and answer any questions. Please call the office to set up an appointment for a time that works for you. Pending Studies at Discharge: No Stand-Alone Forms: My [facility] Skilled Items Patient informed of condition?: Yes DNR: Yes Discharge Level of Care: Acute rehab Communicable Disease: No Discharge Prognosis: Stable Lines: None Urinary Catheter: Yes Medications and DC Order Prescriptions: New Eliquis 2.5 mg Tablet 2.5 mg PO BID Qty: 60 0RF Continued omega-3 fatty acids Capsule 1,250 mg PO .Q OTHER DAY multivitamin Tablet 1 tab PO QAM calcium carbonate-vitamin D3 600 mg(1,500mg) -200 unit Tablet 1 tab PO QAM hydralazine 10 mg Tablet 20 mg PO BID amlodipine 10 mg Tablet 10 mg PO QAM valsartan 320 mg Tablet 320 mg PO QAM metoprolol succinate 25 mg Tablet Extended Release 24 Hr 25 mg PO PM ferrous sulfate 47.5 mg iron Tablet Extended Release 143 mg PO .Q OTHER DAY aspirin 81 mg Tablet,Delayed Release (Dr/Ec) 81 mg PO QAM pravastatin 20 mg tablet 20 mg PO QAM furosemide 20 mg tablet 20 mg PO .3X WEEKLY Rx Instructions: m,w,sunday CoQ-10 1 cap PO QAM Rx Instructions: otc unknown dose Discharge Orders: Discharge Order (Routine); Ordered 04/02/24 Ordered By: Yury Spivey Discharge Order- CHF (Routine); Ordered 04/02/24 Ordered By: Yury Spivey Admission Data Admit Date/Time: 03/28/24 09:45 Attending Provider: Yury Spivey Admit Provider: Jakob Reis Primary Care Provider: Megha Warren Other Providers: Jakob Reis; Abhay Agee; Mena Reyes [facility] Stay Data Consultations 03/28/24 09:20 Consult Orthopedic Surgery Routine ED Decision to Admit Stat Procedures Performed Operation Date: 03/28/24 10:50 Actual Procedures p Insertion of Right Intetrochanteric Femoral Nail(Right) - Rodo Cottrell DO Diagnostic Imagining Performed 03/28/24 11:35 FL hip RT 2-3V Routine Pending Results Patient Have Any Pending Studies at Discharge: No Discharge Instructions Given to Patient (Per Discharging Provider) You are seen in the hospital for right hip fracture. You have been discharged to rehab. Orthopedic recommendations have been made as below. Postoperatively you did have difficulty voiding with urinary retention after Villarreal was removed. Your urinary retention continued after 2 straight caths, a Villarreal was replaced. He may have a repeat Villarreal removal and voiding trial at rehab, and if unsuccessful then can keep the urology appointment being scheduled as above. You have been prescribed a low-dose of a blood thinner medication, Eliquis. Please take Eliquis 2.5 mg by mouth twice daily to help prevent blood clots. For any small cuts please apply firm direct pressure for 10 minutes without checking the wound. For any larger wound, or bleeding that does not stop, or put red blood in the bowels/bloody bowel movements/black bowel movements or other concerning bleeding please seek medical reattention. You have been prescribed a short course of oxycodone to help minimize pain with physical therapy and ambulation. Please use Tylenol up to 1000 mg every 8 hours (do not exceed 4 g of Tylenol in any 24-hour period) for pain prior to using this medication. You may use oxycodone 5mg up to every 8 hours as needed for pain. Oxycodone is a narcotic medication. Do not drive on this medication. This medication can cause dependence and should be used only as needed for a short period of time. If you develop any new or worsening symptoms including fever, chills, sweats, chest pain, chest pressure, difficulty breathing, uncontrolled nausea/vomiting, rash, wheezing, passing out or nearly passing out, bleeding, black/bloody bowel movements, or other new or concerning symptoms please call your primary care physician, or call 911 for re-evaluation in the emergency department if you are very concerned. Total Time Total Time Spent Total Time Spent (In Minutes): 35 minutes. Of this time period, 18 minutes were spent in coordinating patient's discharge. Coding Level of Care Code 77563 INP/OBS DISCH >30 MIN Diagnoses Closed right hip fracture S72.001A Encounter type: initial encounter Hypertension I10 Hypertension type: unspecified Hyperlipidemia E78.5 S/P TAVR (transcatheter aortic valve replacement) Z95.2 History of CHF (congestive heart failure) Z86.79
[2024-04-02 09:44] VITALS: PULSE 75
--- NOTE | 2024-04-02 10:10 | Orthopedic Progress Note ---
Date of Service April 02, 2024 Assessment & Plan (1) Closed right hip fracture: (2) Aftercare for healing traumatic closed fracture of right hip: Plan 74-year-old female POD#5 s/p closed reduction internal fixation of RIGHT intertrochanteric femur/hip fracture with short IM nail, cannulated femoral head/neck compression screw, and dynamic distal locking screw. Plan: 1. DVT prophylaxis w/ Eliquis -- 2.5 mg BID. 2. Con't PT/OT as tolerated. WBAT on RLE. 3. Pain relatively well-controlled continue current regimen. 4. Medical management as per the primary medicine service. 5. While inpatient, surgical wounds to remain covered, with daily dressing changes, or as needed if saturation is noted. When discharged, surgical wound can be left open to air. Plan for staple removal at 2-week postop check. 6. Disposition - orthopedically stable; plan per case management is for transfer to [facility] when accepted. 7. Follow-up outpatient with Dr. Cottrell's team 2 to 3-weeks postop. Subjective Patient is POD#5 s/p right hip short TFN by Dr. Cottrell on 03/28/2024. Patient says her pain is relatively well-controlled this morning. She is continuing to struggle a bit with weightbearing on the operative leg during PT, but making gradual improvements overall. Denies CP, SOB, N/V, RLE paresthesia. She is planning to go to [facility] at discharge once accepted and cleared. Review of Systems All systems reviewed & are unremarkable except as noted in HPI & below. Physical Exam GENERAL: AA&Ox3, NAD. Pleasant, affect is calm. Lying in bed and appears comfortable. RESPIRATORY: Normal respiratory effort with no signs of distress. CHEST/AXILLA: Chest movement symmetrical. No deformities noted. CARDIOVASCULAR: No edema noted. SKIN: [place], warm and dry. MS/EXTREMITY: Hip/femur dressing x2 c/d/i; no saturation noted. Thigh is soft, supple. + ankle dorsi/plantarflexion. NVI distally. Calf soft/NT. PT/DP pulses intact, 2+. Results & Data Results & Data Laboratory Results Laboratory Results - last 24 hr 04/01/24 09:09 WBC 5.75 RBC 4.28 Hgb 7.9 L Hct 24.7 L MCV 57.7 L MCH 18.5 L MCHC 32.0 RDW Std Deviation 31.8 L RDW Coeff of Tina 15.9 H Plt Count 225 Immature Gran % (Auto) 0.3 Neut % (Auto) 69.5 Lymph % (Auto) 16.2 [place] % (Auto) 11.3 Eos % (Auto) 2.4 Baso % (Auto) 0.3 Neut # (Auto) 3.99 Lymph # (Auto) 0.93 L [place] # (Auto) 0.65 H Eos # (Auto) 0.14 Baso # (Auto) 0.02 Immature Gran # (Auto) 0.02 Microcytosis Present Diagnostic Findings PG Care Time/CCT Total # of Minutes Spent Total Time Spent with Patient: Total time spent is greater than 50% in coordination of care (as documented) at patient's floor/unit and/or counseling patient: Coding [place] [address] SUB INP/OBS CARE 1/25MIN Patient Type Established History Problem Focused Exam Problem Focused Medical Decision Making Low Complexity Diagnoses Closed right hip fracture S72.001A Encounter type: initial encounter Aftercare for healing traumatic closed fracture of right hip S72.001D (1) Closed right hip fracture Encounter type: initial encounter Qualified Code(s): S72.001A - Fracture of unspecified part of neck of right femur, initial encounter for closed fracture
== END 2024-04-02 12:50 | DRG 481 ==
LOC: ED 08:15 → SUATTDRO 09:45 → 3W 09:45
DX: S72.141A Displaced intertrochanteric fracture of right femur, initial encounter for closed fracture; W01.0XXA Fall on same level from slipping, tripping and stumbling without subsequent striking against object, initial encounter; D62 Acute posthemorrhagic anemia; Z87.891 Personal history of nicotine dependence; I50.32 Chronic diastolic (congestive) heart failure; R33.8 Other retention of urine; I25.10 Atherosclerotic heart disease of native coronary artery without angina pectoris; Z66 Do not resuscitate; I08.0 Rheumatic disorders of both mitral and aortic valves; I11.0 Hypertensive heart disease with heart failure; E78.5 Hyperlipidemia, unspecified; Y92.89 Other specified places as the place of occurrence of the external cause; Z95.2 Presence of prosthetic heart valve; Z79.82 Long term (current) use of aspirin